=== PATIENT | male | born 1995 | race Caucasian/White ===

== ENCOUNTER 2017-12-27 20:26 | Inpatient (IN) | payer BC, OTHER ==
[~2017-12-27] VITALS: Ht 190.5 cm; Wt 98.1 kg
[2017-12-27] MEDS ORDERED: SODIUM CHLORIDE 0.9% 1000ML 1,000 ML IV ONE (20:53)
[2017-12-27] MEDS ORDERED: LIDOCAINE/EPINEPHRINE 1% 20 ML VIAL INFIL ONE (21:00)
[2017-12-27 21:24] LABS: BASO % 0.3 %; BASO ABS # 0.04 K/uL (0-0.2); EOS % 1.1 %; EOS ABS # 0.16 K/uL (0-0.5); HEMATOCRIT 45.6 % (42-52); IG# 0.07 K/uL (0.00-0.02); LYMPH % 25.7 %; LYMPH ABS # 3.75 K/uL (1.2-3.4); MEAN CELL VOLUME 84.6 fL (80-100); MEAN CORPUSCULAR HEMOGLOBIN 31.5 pg (25-34); MEAN CORPUSCULAR HGB CONC 37.3 g/dl (32-36); MEAN PLATELET VOLUME 9.8 fL (7.4-10.4); MONO ABS # 1.31 K/uL (0.11-0.59); NEUT % 63.4 %; NEUT ABS # 9.28 K/uL (1.4-6.5); PLATELET COUNT 315 K/uL (130-400); RED CELL DISTRIBUTION WIDTH CV 13.2 % (11.5-14.5); RED CELL DISTRIBUTION WIDTH SD 40.6 fL (36.4-46.3); WHITE BLOOD COUNT 14.61 K/uL (4.8-10.8)
[2017-12-27 21:33] LABS: PTT PATIENT 29.4 SECONDS (21.0-31.0)
--- NOTE | 2017-12-27 21:47 | DIAGNOSTIC IMAGING REPORT ---
HEAD WITHOUT CONTRAST (CT) CLINICAL HISTORY: 22 years-old Male with altered MS. Acutely altered mental status. TECHNIQUE: Multiple axial CT images of the head were obtained without contrast. A dose lowering technique was utilized adhering to the principles of ALARA. CT DOSE: 537.48 mGy.cm COMPARISON: None. FINDINGS: No acute intracranial hemorrhage, midline shift, intracranial mass, hydrocephalus, territorial ischemia or abnormal extra-axial collection. The calvarium is intact. The paranasal sinuses, mastoid air cells, and middle ear cavities are clear. IMPRESSION: No acute intracranial abnormality. The above report was generated using voice recognition software. It may contain grammatical, syntax or spelling errors. Electronically signed by: Eduardo Anderson M.D. 12/27/2017 9:45 PM Dictated Date/Time: 12/27/2017 9:44 PM
[2017-12-27] MEDS ORDERED: BUPR75TA20 PO (22:02)
[2017-12-27] MEDS ORDERED: DOXY100T PO (22:02)
[2017-12-27] MEDS ORDERED: PRED20TA PO (22:02)
[2017-12-27] MEDS ORDERED: SODIUM CHLORIDE 0.9% 1000ML 1,000 ML IV STA (22:10)
--- NOTE | 2017-12-27 22:17 | DIAGNOSTIC IMAGING REPORT ---
CHEST ONE VIEW PORTABLE HISTORY: 22 years-old Male Sepsis acute sepsis COMPARISON: None available TECHNIQUE: Portable AP view of the chest FINDINGS: Cardiomediastinal and hilar silhouettes are within normal limits. No pneumothorax, pleural effusion, focal airspace consolidation or overt pulmonary edema. The bones of the chest appear grossly intact. IMPRESSION: No acute process. The above report was generated using voice recognition software. It may contain grammatical, syntax or spelling errors. Electronically signed by: Eduardo Anderson M.D. 12/27/2017 10:15 PM Dictated Date/Time: 12/27/2017 10:15 PM
[2017-12-27] MEDS ORDERED: AMPICILLIN/SULBACTAM SOD INJ 3,000 MG in SODIUM CHLORIDE 0.9% 100ML 100 ML IV ONE (22:30)
[2017-12-27 22:32] LABS: ALBUMIN 3.9 gm/dl (3.4-5.0); ALKALINE PHOSPHATASE 111 U/L (45-117); ALT/SGPT 16 U/L (12-78); AST/SGOT 10 U/L (15-37); BLOOD UREA NITROGEN 17 mg/dl (7-18); CALCIUM 9.1 mg/dl (8.5-10.1); CARBON DIOXIDE 10 mmol/L (21-32); CKMB < 0.5 ng/ml (0.5-3.6); CREATININE 1.42 mg/dl (0.60-1.40); GLUCOSE 514 mg/dl (70-99); LIPASE 1169 U/L (73-393); POTASSIUM 3.8 mmol/L (3.5-5.1); SODIUM 127 mmol/L (136-145); TOTAL PROTEIN 8.3 gm/dl (6.4-8.2)
[2017-12-27] MEDS ORDERED: SODIUM CHLORIDE 0.9% 500ML 500 ML IV STA (22:33)
[2017-12-27] MEDS ORDERED: INSULIN IV INFUSION PROTOCOL STA ×2 (22:34→22:41)
[2017-12-27] MEDS ORDERED: PIPERACILLIN/TAZOBACTAM 4.5 GM/100ML D5W IV STA (22:40)
[2017-12-27] MEDS ORDERED: SEVERE STRESS LEVEL ONE (22:45)
[2017-12-27] MEDS ORDERED: DKA GOAL RANGE 150-250 mg/dl 1 EA ONE (22:45)
[2017-12-27] MEDS ORDERED: INSULIN PROTOCOL GOAL RANGE ONE (22:45)
[2017-12-27] MEDS ORDERED: GLUCOSE 40% GEL 15 GM TUBE PO PRN (23:00)
[2017-12-27] MEDS ORDERED: CARBOHYDRATES FOR HYPOGLYCEMIA PO PRN (23:00)
[2017-12-27] MEDS ORDERED: GLUCAGON FOR INJ 1 MG VIAL IM PRN (23:00)
[2017-12-27] MEDS ORDERED: GLUCOSE 10 TABS/TUBE PO PRN (23:00)
[2017-12-27] MEDS ORDERED: DEXTROSE 50% 50 ML SYR IV PRN (23:00)
[2017-12-27] MEDS ORDERED: NovoLIN R BOLUS FROM BAG IV ONE (23:00)
[2017-12-27] MEDS: INSULIN REGULAR 250 UNITS in SODIUM CHLORIDE 0.9% 250ML 250 ML IV SCH (23:05)
--- NOTE | 2017-12-27 23:16 | EMERGENCY ROOM VISIT NOTE ---
ED Visit Note I was asked by Dr. Dykes to perform an I&D of the patient's right anterior neck abscess. I examined the patient. Verbal consent was obtained to perform the procedure. After saline and Betadine cleansing and 3 mL of 1% buffered lidocaine anesthesia with epinephrine, the abscess was incised with a number 11 scalpel blade. A large amount of purulent material was released with more expressed by pressure. A swab was obtained for culture. Due to its location I did not probe the area further as the area was easily expressed digitally. I did not pack this again secondary to its location. The area was cleaned with sterile saline and dressed with bacitracin and a bandage. The patient tolerated the procedure well.
[2017-12-27] MEDS: NSS + 20MEQ KCL 1000ML 1,000 ML IV SCH (23:29)
--- NOTE | 2017-12-27 23:31 | EMERGENCY ROOM VISIT NOTE ---
History Report prepared by Steffi: Rosario Solis Under the Supervision of: Dr. Trever Dykes D.O. First contact with patient: 20:47 Chief Complaint: CONFUSION Stated Complaint: DIZZY - TROUBLE BREATHING - CONFUSED History of Present Illness The patient is a 22 year old male who presents to the Emergency Room with complaints of worsening confusion starting 2 days ago. The patient states that he noticed it is worse when he is standing up. He notes that when he lies down it gets better. The patient complains of dizziness when standing, shortness of breath while standing, excessive thirst, and heart burn that whitney his throat. The patient notes that he has had ingrown hairs that have turned into cysts for 3 weeks. He states that most have gone away, but one has not. He states that he went to [facility] on Tuesday for it and they prescribed him Doxycycline and Prednisone. He notes that he has been putting Clindamycin on it with no relief. The patient's mother notes that the patient is on Wellbutrin and has since lost a lot of weight. She complains of the patient speaking slower than normal. The patient denies fever, nausea, vomiting, headaches, redness in his legs, leg swelling, urinary symptoms, ever having any surgeries, ever having this before, and recent falls. The patient notes that he uses tobacco, alcohol, and marijuana. He notes he only uses marijuana on the weekends and has not drank or smoked marijuana in the last 48 hours. Source of History: patient, parent Onset: 2 days ago Position: other (global) Quality: other (confusion) Timing: worsening Modifying Factors (Worsening): other (standing up) Modifying Factors (Relieving): other (lying down) Associated Symptoms: + SOB, No fevers, No headache, No nausea, No vomiting, No urinary symptoms Note: The patient complains of dizziness, excessive thirst, heart burn burning his throat and cyst on his neck. The patient's mother complains of the patient having significant weight loss and speaking slower. The patient denies redness in his legs and leg swelling. Review of Systems See HPI for pertinent positives & negatives. A total of 10 systems reviewed and were otherwise negative. Past Medical & Surgical Medical Problems: (1) Heart burn (2) Sepsis Family History Patient reports no known family medical history. Social History Smoking Status: Current Every Day Smoker Alcohol Use: occasionally Drug Use: marijuana Marital Status: single Housing Status: lives with family Occupation Status: employed Current/Historical Medications Scheduled Bupropion (Wellbutrin), 1 TAB PO DAILY Doxycycline Hyclate (Doxycycline Hyclate), 100 MG PO BID Prednisone (Prednisone), 40 MG PO DAILY Allergies Coded Allergies: Kerosene (Verified Allergy, Unknown, Vomiting, 12/27/17) Physical Exam Vital Signs Date Time Temp Pulse Resp B/P (MAP) Pulse Ox O2 Delivery O2 Flow Rate FiO2 12/27/17 23:30 106 12/27/17 23:00 90 18 124/73 100 Room Air 12/27/17 22:04 102 18 104/76 100 Room Air 12/27/17 22:01 107 18 131/83 100 Room Air 109 108/85 121 104/76 12/27/17 21:17 99 Room Air 12/27/17 20:39 36.3 121 18 122/78 99 Room Air Physical Exam GENERAL: Patient is awake, alert, and mildly anxious appearing. EYES: The conjunctivae are clear. The pupils are round and reactive. EARS, NOSE, MOUTH AND THROAT: The nose is without any evidence of any deformity. Mucous membranes are dry. tongue is midline. Posterior oropharynx is mildly erythematous. No significant swelling. A fluctuant superficial abscess under the right mandibular area. No posterior tenderness appreciated. NECK: The neck is nontender and supple. RESPIRATORY: Normal respiratory effort is noted there is no evidence of wheezing rhonchi or rales CARDIOVASCULAR: Tachycardic rate, but regular rhythm. No definite murmur appreciated to auscultation. GASTROINTESTINAL: The abdomen is soft. Bowel sounds are present in all quadrants. Abdomen is nontender MUSCULOSKELETAL/EXTREMITIES: There is no evidence of gross deformity full range of motion is noted in the hips and shoulders SKIN: There is no obvious evidence of any rash. There are no petechiae, pallor or cyanosis noted. NEUROLOGIC: Patient is awake alert and oriented x3 strength is symmetric patellar reflexes are 2+ bilaterally Medical Decision & Procedures ER Provider Diagnostic Interpretation: Radiology results as stated below per my review and radiologist interpretation: CHEST ONE VIEW PORTABLE HISTORY: 22 years-old Male Sepsis acute sepsis COMPARISON: None available TECHNIQUE: Portable AP view of the chest FINDINGS: Cardiomediastinal and hilar silhouettes are within normal limits. No pneumothorax, pleural effusion, focal airspace consolidation or overt pulmonary edema. The bones of the chest appear grossly intact. IMPRESSION: No acute process. The above report was generated using voice recognition software. It may contain grammatical, syntax or spelling errors. Electronically signed by: Eduardo Anderson M.D. 12/27/2017 10:15 PM Dictated Date/Time: 12/27/2017 10:15 PM HEAD WITHOUT CONTRAST (CT) CLINICAL HISTORY: 22 years-old Male with altered MS. Acutely altered mental status. TECHNIQUE: Multiple axial CT images of the head were obtained without contrast. A dose lowering technique was utilized adhering to the principles of ALARA. CT DOSE: 537.48 mGy.cm COMPARISON: None. FINDINGS: No acute intracranial hemorrhage, midline shift, intracranial mass, hydrocephalus, territorial ischemia or abnormal extra-axial collection. The calvarium is intact. The paranasal sinuses, mastoid air cells, and middle ear cavities are clear. IMPRESSION: No acute intracranial abnormality. The above report was generated using voice recognition software. It may contain grammatical, syntax or spelling errors. Electronically signed by: Eduardo Anderson M.D. 12/27/2017 9:45 PM Dictated Date/Time: 12/27/2017 9:44 PM Laboratory Results 12/27/17 21:00 Red Blood Count 5.39, Mean Corpuscular Volume 84.6, Mean Corpuscular Hemoglobin 31.5, Mean Corpuscular Hemoglobin Concent 37.3, Mean Platelet Volume 9.8, Neutrophils (%) (Auto) 63.4, Lymphocytes (%) (Auto) 25.7, Monocytes (%) (Auto) 9.0, Eosinophils (%) (Auto) 1.1, Basophils (%) (Auto) 0.3, Neutrophils # (Auto) 9.28, Lymphocytes # (Auto) 3.75, Monocytes # (Auto) 1.31, Eosinophils # (Auto) 0.16, Basophils # (Auto) 0.04 12/27/17 21:00 Test 12/27/17 21:00 12/27/17 21:14 12/27/17 22:05 12/27/17 22:57 White Blood Count 14.61 K/uL (4.8-10.8) Red Blood Count 5.39 M/uL (4.7-6.1) Hemoglobin 17.0 g/dL (14.0-18.0) Hematocrit 45.6 % (42-52) Mean Corpuscular Volume 84.6 fL (80-100) Mean Corpuscular Hemoglobin 31.5 pg (25-34) Mean Corpuscular Hemoglobin Concent 37.3 g/dl (32-36) Platelet Count 315 K/uL (130-400) Mean Platelet Volume 9.8 fL (7.4-10.4) Neutrophils (%) (Auto) 63.4 % Lymphocytes (%) (Auto) 25.7 % Monocytes (%) (Auto) 9.0 % Eosinophils (%) (Auto) 1.1 % Basophils (%) (Auto) 0.3 % Neutrophils # (Auto) 9.28 K/uL (1.4-6.5) Lymphocytes # (Auto) 3.75 K/uL (1.2-3.4) Monocytes # (Auto) 1.31 K/uL (0.11-0.59) Eosinophils # (Auto) 0.16 K/uL (0-0.5) Basophils # (Auto) 0.04 K/uL (0-0.2) RDW Standard Deviation 40.6 fL (36.4-46.3) RDW Coefficient of Variation 13.2 % (11.5-14.5) Immature Granulocyte % (Auto) 0.5 % Immature Granulocyte # (Auto) 0.07 K/uL (0.00-0.02) Erythrocyte Sedimentation Rate 23 mm/hr (0-14) Prothrombin Time 10.4 SECONDS (9.0-12.0) Prothromb Time International Ratio 1.0 (0.9-1.1) Activated Partial Thromboplast Time 29.4 SECONDS (21.0-31.0) Partial Thromboplastin Ratio 1.1 D-Dimer 310 ug/L FEU (0-500) Anion Gap 22.0 mmol/L (3-11) Est Creatinine Clear Calc Drug Dose 95.9 ml/min Estimated GFR () 79.6 Estimated GFR (Non- 68.6 BUN/Creatinine Ratio 11.6 (10-20) Osmolality 319 mOsm/kg (280-300) Calcium Level 9.1 mg/dl (8.5-10.1) Magnesium Level 2.1 mg/dl (1.8-2.4) Total Bilirubin 0.7 mg/dl (0.2-1) Aspartate Amino Transf (AST/SGOT) 10 U/L (15-37) Alanine Aminotransferase (ALT/SGPT) 16 U/L (12-78) Alkaline Phosphatase 111 U/L (45-117) Total Creatine Kinase 41 U/L (39-308) Creatine Kinase MB < 0.5 ng/ml (0.5-3.6) Creatine Kinase MB Ratio (0-3.0) Troponin I < 0.015 ng/ml (0-0.045) C-Reactive Protein 0.64 mg/dl (0-0.29) Total Protein 8.3 gm/dl (6.4-8.2) Albumin 3.9 gm/dl (3.4-5.0) Globulin 4.4 gm/dl (2.5-4.0) Albumin/Globulin Ratio 0.9 (0.9-2) Lipase 1169 U/L (73-393) Beta-Hydroxybutyric Acid 91.87 mg/dL (0.2-2.81) Thyroid Stimulating Hormone (TSH) 1.440 uIu/ml (0.300-4.500) Chemistry Specimen Hemolysis Bedside Lactic Acid Venous 0.97 mmol/L (0.90-1.70) Urine Color YELLOW Urine Appearance CLEAR (CLEAR) Urine pH 5.0 (4.5-7.5) Urine Specific [place] 1.040 (1.000-1.030) Urine Protein TRACE (NEG) Urine Glucose (UA) 3+ (NEG) Urine Ketones 4+ (NEG) Urine Occult Blood NEG (NEG) Urine Nitrite NEG (NEG) Urine Bilirubin NEG (NEG) Urine Urobilinogen NEG (NEG) Urine Leukocyte Esterase NEG (NEG) Urine WBC (Auto) 0 /hpf (0-5) Urine RBC (Auto) 0-4 /hpf (0-4) Urine Hyaline Casts (Auto) 5-10 /lpf (0-5) Urine Epithelial Cells (Auto) 5-10 /lpf (0-5) Urine Bacteria (Auto) NEG (NEG) Arterial Blood pH 7.24 (7.35-7.45) Arterial Blood Partial Pressure CO2 19 mmHg (35-46) Arterial Blood Partial Pressure O2 124 mm/Hg (80-95) Arterial Blood HCO3 8 mmol/L (19-24) Arterial Blood Oxygen Saturation 98.3 % (90-95) Arterial Blood Base Excess -17.1 mEq/L (-9-1.8) Arterial Blood Gas Delivery RA George Test POS (POS) Test 12/27/17 23:02 Venous Blood pH 7.17 (7.36-7.41) Venous Blood Partial Pressure CO2 28 mmHg (38.0-50.0) Venous Blood Partial Pressure O2 43 mmHg Venous Blood HCO3 10 mmol/L Venous Blood Oxygen Saturation 71.5 % Venous Blood Base Excess -17.1 mEq/L Laboratory results per my review. Medications Administered Medications (Trade) Dose Ordered Sig/Xena Route Start Time Stop Time Status Last Admin Dose Admin Sodium Chloride 1,000 ml @ 999 mls/hr Q1H1M ONCE IV 12/27/17 20:53 12/27/17 21:53 DC 12/27/17 21:22 999 MLS/HR Sodium Chloride 1,000 ml @ 999 mls/hr Q1H1M STAT IV 12/27/17 22:10 12/27/17 23:10 DC 12/27/17 22:10 999 MLS/HR Sodium Chloride 500 ml @ 999 mls/hr Q31M STAT IV 12/27/17 22:33 12/27/17 23:03 DC 12/27/17 22:44 999 MLS/HR Piperacillin Sod/ Tazobactam Sod (Zosyn Iv) 4.5 gm NOW STAT IV 12/27/17 22:40 12/27/17 22:43 DC 12/27/17 22:47 4.5 GM Insulin Human Regular (NovoLIN R BOLUS FROM BAG) 3.5 unit NOW ONCE IV 12/27/17 23:00 12/27/17 23:01 DC 12/27/17 23:00 3.5 UNIT Insulin Human Regular 250 units/ Sodium Chloride 252.5 ml @ 0 mls/hr Q24H IV 12/27/17 23:00 01/26/18 22:59 12/28/17 00:03 4.2 MLS/HR Potassium Chloride/Sodium Chloride 1,000 ml @ 250 mls/hr Q4H IV 12/27/17 23:15 01/26/18 23:14 12/27/17 23:29 250 MLS/HR ECG Per My Interpretation Indication: other (confusion, dizziness) Rate (beats per minute): 102 Rhythm: sinus tachycardia Findings: no ectopy, other (no acute ST segment abnormalities) Comparison ECG Date: no prior available ED Course 2047: The patient was evaluated in room B8. A complete history and physical examination were performed. 2052: Ordered NSS 1000 ml @ 999 mls/hr IV. 2099: Ordered Lidocaine/ Epinephrine 20 ml INFIL. 2209: Ordered NSS 1000 ml @ 999 mls/hr IV. 2229: Ordered Ampicillin Sodium/ Sulbactam Sodium 3000 mg/ Sodium Chloride 108 ml @ 200 mls/hr IV. 2232: Ordered NSS 500 ml @ 999 mls/hr IV. 2233: Ordered Insulin Human Regular 1 ea N/A. 2235: I reevaluated the patient and updated him on his test results. 2239: I discussed the patient's case with Dr. Kavya Graham. The patient will be evaluated for further management. Medical Decision Differential diagnosis: Etiologies such as benign positional vertigo, dehydration, hypovolemia, anemia, tumor, infection, hypoglycemia, electrolyte abnormalities, cardiac sources, intracerebral event, toxicologic, neurologic, as well as others were entertained. Nursing notes reviewed. Additional history is obtained from the patient's family member. The patient is a 22-year-old male who presented to the emergency department for an evaluation. The patient had orthostatic symptoms such as dizziness and near syncope. He was found to have orthostatic hypotension. The patient also was taking an antibiotic and a steroid for a facial abscess. He states that he has developed some of these recently and [facility] and started on antibiotics and a steroid. Patient also reported polyuria and polydipsia. I discussed patient's laboratory and radiographic studies with him. The facial abscess was incised and drained by my physician assistant research scientist Yusuf Dyer. Please see his note for procedure details. The patient was started on IV fluids and IV insulin. He was also treated with IV antibiotics. I discussed patient's condition with the on-call [facility]. They have agreed to evaluate the patient in the emergency department for further management and disposition. Head Trauma GCS Score: 15 Medication Reconcilliation Current Medication List: was personally reviewed by me Blood Pressure Screening Patient's blood pressure: Normal blood pressure Will be further monitored by the hospitalist. Consults Time Called: 2233 Consulting Physician: Dr. Kavya Graham Returned Call: 2239 I discussed the patient's case with Dr. Kavya Ovalles Hospitalist. The patient will be evaluated for further management. Impression Primary Impression: DKA (diabetic ketoacidoses) Additional Impressions: Facial abscess Pancreatitis Orthostatic hypotension Critical Care I have personally spent greater than 45 minutes of critical care time in the direct management of this patient. This includes bedside care, interpretation of diagnostic studies, and testing, discussion with consultants, patient, and family members, and other required patient management activities. This 45 minutes is in excess of all separately billable procedures. Scribe Attestation The scribe's documentation has been prepared under my direction and personally reviewed by me in its entirety. I confirm that the note above accurately reflects all work, treatment, procedures, and medical decision making performed by me. Departure Information Dispostion Being Evaluated By Hospitalist Referrals No Doctor, Assigned (PCP) Patient Instructions My [facility] Problem Qualifiers Primary Impression: DKA (diabetic ketoacidoses) Diabetes mellitus type: other specified (including KATHY) Diabetes mellitus complication detail: without coma Qualified Codes: E13.10 - Other specified diabetes mellitus with ketoacidosis without coma Additional Impressions: Pancreatitis Chronicity: acute Pancreatitis type: unspecified pancreatitis type Acute pancreatitis complication: unspecified Qualified Codes: K85.90 - Acute pancreatitis without necrosis or infection, unspecified
[2017-12-28] VITALS (10 sets, daily range): BP systolic 95–132; BP diastolic 58–84; PULSE 90–117; TEMP 36.3–37; O2SAT 98–100; BMI 25.8; BMI 26.4
[2017-12-28] MEDS: INSULIN REGULAR 250 UNITS in SODIUM CHLORIDE 0.9% 250ML 250 ML IV SCH ×13 (00:03→18:11)
[2017-12-28] MEDS ORDERED: NICOTINE 14 MG/24 HR TDSY TD ONE (00:48)
[2017-12-28] MEDS ORDERED: ACETAMINOPHEN 325 MG TAB PO PRN (01:15)
[2017-12-28] MEDS ORDERED: HYDROmorphone INJ 0.5 MG/0.5 ML SYR IV PRN (01:15)
[2017-12-28] MEDS ORDERED: LORAZEPAM 2 MG/ML 1 ML VIAL IV PRN (01:15)
[2017-12-28] MEDS ORDERED: PROCHLORPERAZINE INJ 5 MG in SYRINGE 4 ML IV PRN (01:15)
[2017-12-28] MEDS ORDERED: TRAMADOL HCL 50 MG TAB PO PRN (01:15)
[2017-12-28] MEDS ORDERED: NITROGLYCERIN 0.4 MG SL PER TAB CHARGE SL PRN (01:15)
[2017-12-28] MEDS ORDERED: D5NSS + 20MEQ KCL 1,000 ML IV PRN (01:15)
[2017-12-28 01:35] LABS: CALCIUM 8.2 mg/dl (8.5-10.1); CREATININE 1.17 mg/dl (0.60-1.40); POTASSIUM 3.9 mmol/L (3.5-5.1)
[2017-12-28] MEDS: CEFEPIME IV 2,000 MG in SYRINGE 7.5 ML IV SCH ×2 (03:15→13:37)
[2017-12-28] MEDS: NSS + 20MEQ KCL 1000ML 1,000 ML IV SCH ×3 (03:15→17:05)
[2017-12-28] MEDS: HEPARIN SOD 5000 UNIT/0.5 ML CARP SQ SCH ×3 (06:00→21:13)
[2017-12-28 06:20] LABS: HEMOGLOBIN A1C 14.1 % (4.5-5.6)
[2017-12-28 06:35] LABS: BASO % 0.3 %; BASO ABS # 0.03 K/uL (0-0.2); EOS % 2.3 %; EOS ABS # 0.21 K/uL (0-0.5); HEMATOCRIT 39.2 % (42-52); HEMOGLOBIN 14.5 g/dL (14.0-18.0); IG# 0.04 K/uL (0.00-0.02); LYMPH % 24.7 %; LYMPH ABS # 2.28 K/uL (1.2-3.4); MEAN CELL VOLUME 84.1 fL (80-100); MEAN CORPUSCULAR HEMOGLOBIN 31.1 pg (25-34); MEAN PLATELET VOLUME 9.1 fL (7.4-10.4); MONO % 9.6 %; MONO ABS # 0.89 K/uL (0.11-0.59); NEUT % 62.7 %; NEUT ABS # 5.78 K/uL (1.4-6.5); PLATELET COUNT 219 K/uL (130-400); RED CELL DISTRIBUTION WIDTH CV 13.2 % (11.5-14.5); RED CELL DISTRIBUTION WIDTH SD 39.9 fL (36.4-46.3); WHITE BLOOD COUNT 9.23 K/uL (4.8-10.8)
[2017-12-28 07:14] LABS: BLOOD UREA NITROGEN 10 mg/dl (7-18); CALCIUM 7.9 mg/dl (8.5-10.1); CARBON DIOXIDE 14 mmol/L (21-32); CREATININE 1.02 mg/dl (0.60-1.40); GLUCOSE 199 mg/dl (70-99); SODIUM 136 mmol/L (136-145)
[2017-12-28] MEDS ORDERED: PHARMACY GLYCEMIC MGMT CONSULT PRN (07:34)
[2017-12-28] MEDS ORDERED: NURSING VERBAL MED ORDER ONE ×4 (08:15→13:45)
[2017-12-28] MEDS ORDERED: INSULIN GLARGINE SOLOSTAR 100 UNITS/ML 3 ML PEN SC ONE ×2 (08:15→08:45)
[2017-12-28] MEDS: POTASSIUM CHLR 10 MEQ / WTR 100 ML IV SCH ×7 (08:25→23:42)
[2017-12-28] MEDS: DOXYCYCLINE HYCLATE 100 MG CAP PO SCH ×2 (08:28→21:13)
[2017-12-28] MEDS: INSULIN ASPART 100 UNITS/ML 3 ML PEN SC SCH ×6 (08:30→21:30)
[2017-12-28] MEDS: SODIUM CHLORIDE 0.9% 1000ML 1,000 ML IV SCH ×2 (08:49→13:37)
[2017-12-28] MEDS ORDERED: INSULIN ASPART 100 UNITS/ML 3 ML PEN SC SCH (09:00)
[2017-12-28] MEDS ORDERED: CEFEPIME CONSULT ACTIVE PRN (09:00)
--- NOTE | 2017-12-28 09:20 | HISTORY & PHYSICAL EXAMINATION ---
DATE OF ADMISSION: 12/28/2017 PRIMARY CARE DOCTOR: Dr. Norris Cole CHIEF COMPLAINT: Shortness of breath, dizziness. HISTORY OF PRESENT ILLNESS: History is obtained from the patient, mother, and records. Medical history is significant for mood, anxiety disorder, ongoing tobacco abuse. A few weeks ago, the patient noted swelling on the right chin, possibly from an ingrown hair. No toothache. A few days ago, the patient was seen at an urgent care center for possible infection. Given doxycycline and prednisone. Swelling unimproved. Patient noted to be dizzy, slightly confused by mother, shortness of breath, peeing a lot, poor appetite, some nausea, no abdominal pain, no vomiting. Patient was brought to the Emergency Room. Right chin abscess drain at the ER. IV insulin, IVF given for DKA. MEDICAL HISTORY: As above. No abdominal pain. SURGERIES: None. HOME MEDICATIONS: Include Wellbutrin, doxycycline, prednisone. ALLERGIES: NKA FAMILY HISTORY: There is a family history of diabetes. PERSONAL AND SOCIAL HISTORY: Half pack a day. No chronic intake of alcoholic beverages. Currently not working. Lives with mother. REVIEW OF SYSTEMS: As per HPI, all 10 systems reviewed. All other ROS negative. PHYSICAL EXAMINATION: VITAL SIGNS: Blood pressure was noted to be 130/78, pulse rate 110, RR 18, temperature 36.3, sats 99 on room air. GENERAL: Anxious, in no respiratory distress. SKIN: Normal color, warm. HEENT: [place] palpebral conjunctivae. No ptosis. Dry mucosa. No trismus. Dressing on right submental area. CHEST: Clear to auscultation. HEART: Tachycardic. No murmur. ABDOMEN: Soft, nontender. EXTREMITIES: No edema, no tenderness. No gross deformity. NEUROLOGIC: Coherent. No gross focality. LABORATORIES: Hemoglobin was noted to be 13.7, hematocrit was 40.6, WBC 14 platelets 315. Sodium noted to be 132, potassium 3.8, chloride 95, CO2 10, BUN 70, creatinine 1.42, glucose was noted to be 514. Ketones abnormal. Venous blood gas, pH 7.24, pCO2 19, pO2 124, O2 sats 98 on room air. LFTs were normal, lipase 1000 DATA: CT head, no acute pathology. Chest x-ray, no acute process. ASSESSMENT: 1. Severe sepsis SIRS plus ARF secondary to right submental abscess (non-odontogenic infection) failed outpatient treatment 2. diabetic ketoacidosis precipitated by sepsis, steroid Rx New diagnosis of DM 3. Ongoing tobacco abuse. 4. Mood/ anxiety disorder, stable as per patient PLAN: PCU CS, Cefepime, Doxycycline IVF, follow renal function dc outpatient steroid course IV insulin, IVF Check hemoglobin A1C Diabetic education Endocrinology consult outpatient at some point May benefit from Pharmacy glycemic control consult. Nicotine patch. DVT prophylaxis, Heparin subQ. FULL CODE. MTDD
[2017-12-28] MEDS ORDERED: PANTOprazole INJ 40 MG in SYRINGE 0 ML IV ONE (11:45)
[2017-12-28 13:01] LABS: CALCIUM 7.7 mg/dl (8.5-10.1); CREATININE 0.9 mg/dl (0.60-1.40); POTASSIUM 3.5 mmol/L (3.5-5.1)
--- NOTE | 2017-12-28 15:26 | Pharmacy Progress Note ---
Glycemic Control Intl Consult Date of Service December 28, 2017. Scope Glycemic Pharmacist consulted by Dr Gomez on 12/28/17 for glycemic control and to write orders per [facility] inpatient glycemic control protocol. Objective Weight (Kilograms): 95.900 Accuchecks BSG (last 24hrs): Test 12/27/17 21:00 12/27/17 22:40 12/27/17 23:56 12/28/17 01:00 Random Glucose 514 mg/dl (70-99) Bedside Glucose 438 mg/dl (70-99) 390 mg/dl (70-99) 348 mg/dl (70-99) Test 12/28/17 01:01 12/28/17 02:11 12/28/17 02:59 12/28/17 04:13 Random Glucose 303 mg/dl (70-99) Bedside Glucose 296 mg/dl (70-99) 251 mg/dl (70-99) 195 mg/dl (70-99) Test 12/28/17 05:07 12/28/17 05:58 12/28/17 06:28 12/28/17 06:57 Bedside Glucose 209 mg/dl (70-99) 248 mg/dl (70-99) 195 mg/dl (70-99) Random Glucose 199 mg/dl (70-99) Test 12/28/17 08:07 12/28/17 09:02 12/28/17 10:01 12/28/17 11:00 Bedside Glucose 188 mg/dl (70-99) 194 mg/dl (70-99) 207 mg/dl (70-99) 216 mg/dl (70-99) Test 12/28/17 11:58 12/28/17 12:30 12/28/17 13:03 12/28/17 14:01 Bedside Glucose 212 mg/dl (70-99) 224 mg/dl (70-99) 192 mg/dl (70-99) Random Glucose 218 mg/dl (70-99) Test 12/28/17 15:01 Bedside Glucose 191 mg/dl (70-99) Laboratory Data (last 24hrs) Test 12/27/17 21:00 12/27/17 23:02 12/28/17 01:01 12/28/17 06:28 Anion Gap 22.0 mmol/L 17.0 mmol/L 13.0 mmol/L BUN/Creatinine Ratio 11.6 11.5 9.9 Blood Urea Nitrogen 17 mg/dl 13 mg/dl 10 mg/dl Creatinine 1.42 mg/dl 1.17 mg/dl 1.02 mg/dl Potassium Level 3.8 mmol/L 3.9 mmol/L 3.0 mmol/L Sodium Level 127 mmol/L 135 mmol/L 136 mmol/L White Blood Count 14.61 K/uL 9.23 K/uL Red Blood Count 5.39 M/uL 4.66 M/uL Hemoglobin 17.0 g/dL 14.5 g/dL Hematocrit 45.6 % 39.2 % Mean Corpuscular Volume 84.6 fL 84.1 fL Mean Corpuscular Hemoglobin 31.5 pg 31.1 pg Mean Corpuscular Hemoglobin Concent 37.3 g/dl 37.0 g/dl Platelet Count 315 K/uL 219 K/uL Mean Platelet Volume 9.8 fL 9.1 fL Neutrophils (%) (Auto) 63.4 % 62.7 % Lymphocytes (%) (Auto) 25.7 % 24.7 % Monocytes (%) (Auto) 9.0 % 9.6 % Eosinophils (%) (Auto) 1.1 % 2.3 % Basophils (%) (Auto) 0.3 % 0.3 % Neutrophils # (Auto) 9.28 K/uL 5.78 K/uL Lymphocytes # (Auto) 3.75 K/uL 2.28 K/uL Monocytes # (Auto) 1.31 K/uL 0.89 K/uL Eosinophils # (Auto) 0.16 K/uL 0.21 K/uL Basophils # (Auto) 0.04 K/uL 0.03 K/uL Hemoglobin A1c 14.1 % Test 12/28/17 12:30 Anion Gap 17.0 mmol/L BUN/Creatinine Ratio 7.5 Blood Urea Nitrogen 7 mg/dl Creatinine 0.90 mg/dl Potassium Level 3.5 mmol/L Sodium Level 135 mmol/L HbA1c Test 12/27/17 23:02 Hemoglobin A1c 14.1 % (4.5-5.6) H Recent Pertinent Medications Outpatient Anti-diabetic Regimen: * n/a * A1c = 14.1% (12/27/17) Risk Factors for Insulin Resistance: * Steroids: n/a * Infection: doxy PO, cefepime IV * IVF: NS + 20mEq KCl @ 250mL/hr * Diet: NPO --> Type 1 diabetic diet Assessment & Plan ASSESSMENT: * Mr Kamara is a 22yo previously undiagnosed diabetic, admitted with sepsis and found to be in DKA. * admission labs: BHBA 91.9, urine ketones 4+, BSG > 500, anion gap 22, CO2 10 , pH 7.2 * Patient was prescribed prednisone as an outpt recently, which likely contributed to DKA. * Patient's potassium level was 3.0 this morning, so insulin gtt was placed on hold for several hours until K+ replaced. Lantus dose was given in the mean time. * Repeat labs confirmed that DKA has not yet resolved and that K+ acceptable to resume IV insulin infusion. PLAN FOR INPATIENT GLYCEMIC CONTROL: * Resume IV insulin infusion * Goal Range 120 - 180 mg/dl * Resume at 2.4 units/hr and then titrate per Insulin Infusion Adjustment Calculator * Holding outpatient oral diabetes medications * Basal insulin with LANTUS 30 units SQ x1 dose this morning * Will work on transition to SQ regimen tomorrow morning, if labs are appropriate (drip should continue overnight) * Should have a better idea of patient's insulin requirements after spending some time on insulin infusion * Correctional Insulin with NOVOLOG / REGULAR per scale PCHS while on insulin gtt * CHO coverage per Insulin Infusion Adjustment Calculator DISCHARGE PLANNING: * Patient's current A1c 14.1%. Patient will need to be discharged on an insulin regimen. * Recommendations once more is known about patient's insulin requirements. * CDE consulted and working with patient. * Please note that the plan above was derived based on current level of insulin resistance and hospital stress. These recommendations are appropriate for inpatient admission only. Plan of care upon discharge will need to be reassessed to avoid potential outpatient hypo/hyperglycemia. Thank you.
[2017-12-28] MEDS: BuPROPion XL 150 MG TABCR PO SCH (16:29)
[2017-12-28 17:08] LABS: CALCIUM 7.8 mg/dl (8.5-10.1); CREATININE 0.96 mg/dl (0.60-1.40); POTASSIUM 3.1 mmol/L (3.5-5.1)
[2017-12-28] MEDS ORDERED: POTASSIUM CHLORIDE 20 MEQ TABCR PO STA (17:56)
[2017-12-28] MEDS ORDERED: POTASSIUM CHLR 10 MEQ / WTR 100 ML IV STA (17:58)
--- NOTE | 2017-12-28 19:07 | Progress Note ---
Internal Med Progress Note Date of Service: December 28, 2017. Provider Documentation: SUBJECTIVE: Patient awake and alert. Still on Insulin drip and on IV potassium. Denies acute pain or shortness of breath. OBJECTIVE: Exam: General- no distress Eyes- EOMI Neck-no JVD Lungs- CTABL, no wheezing Heart- regular rate Abdomen- soft, nontender, + bowel sounds Extremities- no edema Neuro- awake and alert ASSESSMENT & PLAN: Severe sepsis -SIRS plus ARF secondary to right submental abscess (non-odontogenic infection) failed outpatient treatment -Cefepime, Doxycycline, IV insulin, IVF -follow skin wound culture and blood cultures diabetic ketoacidosis precipitated by sepsis, steroid Rx -dc outpatient steroid course, New diagnosis of diabetes -Inpatient Pharmacy glycemic control consult IV insulin, IVF, patient's anion gap has not closed yet and IV insulin treatment has been interrupted because of hypokalemia and need to improve serum potassium levels, currently the plan is have IV potassium riders with oral potassium and keep insulin drip running to close the gap, labs are being drawn frequently q4 hours and if next serum potassium level is less than 3.3 then there are future ordered to give 30 meq IV potassium likely as 10 meq q 1 hr for 3 doses. -Diabetic educations of DM -outpatient endocrine follow up Tobacco use -Nicotine patch. Mood/ anxiety disorder, stable as per patient -bupropion DVT prophylaxis, Heparin subQ. FULL CODE. Vital Signs: Date Time Temp Pulse Resp B/P (MAP) Pulse Ox O2 Delivery O2 Flow Rate FiO2 12/28/17 16:10 Room Air 12/28/17 14:53 36.8 108 18 131/84 (100) 99 Room Air 12/28/17 14:39 36.7 90 20 118/76 (90) 99 Room Air 12/28/17 12:00 100 Room Air 12/28/17 11:28 36.3 91 16 95/58 (70) 100 Room Air 12/28/17 08:00 98 Room Air 12/28/17 07:10 36.6 117 20 107/73 (84) 98 Room Air 12/28/17 04:32 36.6 92 18 111/73 (86) 98 Room Air 12/28/17 04:00 Room Air 12/28/17 00:45 37.0 94 18 119/77 100 Room Air 12/28/17 00:00 36.8 100 18 150/80 100 Room Air 12/27/17 23:30 106 12/27/17 23:00 90 18 124/73 100 Room Air 12/27/17 22:04 102 18 104/76 100 Room Air 12/27/17 22:01 107 18 131/83 100 Room Air 109 108/85 121 104/76 12/27/17 21:17 99 Room Air 12/27/17 20:39 36.3 121 18 122/78 99 Room Air Lab Results: Results Past 24 Hours Test 12/27/17 21:00 12/27/17 21:14 12/27/17 22:05 12/27/17 22:40 Range/Units White Blood Count 14.61 4.8-10.8 K/uL Red Blood Count 5.39 4.7-6.1 M/uL Hemoglobin 17.0 14.0-18.0 g/dL Hematocrit 45.6 42-52 % Mean Corpuscular Volume 84.6 80-100 fL Mean Corpuscular Hemoglobin 31.5 25-34 pg Mean Corpuscular Hemoglobin Concent 37.3 32-36 g/dl Platelet Count 315 130-400 K/uL Mean Platelet Volume 9.8 7.4-10.4 fL Neutrophils (%) (Auto) 63.4 % Lymphocytes (%) (Auto) 25.7 % Monocytes (%) (Auto) 9.0 % Eosinophils (%) (Auto) 1.1 % Basophils (%) (Auto) 0.3 % Neutrophils # (Auto) 9.28 1.4-6.5 K/uL Lymphocytes # (Auto) 3.75 1.2-3.4 K/uL Monocytes # (Auto) 1.31 0.11-0.59 K/uL Eosinophils # (Auto) 0.16 0-0.5 K/uL Basophils # (Auto) 0.04 0-0.2 K/uL RDW Standard Deviation 40.6 36.4-46.3 fL RDW Coefficient of Variation 13.2 11.5-14.5 % Immature Granulocyte % (Auto) 0.5 % Immature Granulocyte # (Auto) 0.07 0.00-0.02 K/uL Erythrocyte Sedimentation Rate 23 0-14 mm/hr Prothrombin Time 10.4 9.0-12.0 SECONDS Prothromb Time International Ratio 1.0 0.9-1.1 Activated Partial Thromboplast Time 29.4 21.0-31.0 SECONDS Partial Thromboplastin Ratio 1.1 D-Dimer 310 0-500 ug/L FEU Sodium Level 127 136-145 mmol/L Potassium Level 3.8 3.5-5.1 mmol/L Chloride Level 95 98-107 mmol/L Carbon Dioxide Level 10 21-32 mmol/L Anion Gap 22.0 3-11 mmol/L Blood Urea Nitrogen 17 7-18 mg/dl Creatinine 1.42 0.60-1.40 mg/dl Est Creatinine Clear Calc Drug Dose 95.9 ml/min Estimated GFR () 79.6 Estimated GFR (Non- 68.6 BUN/Creatinine Ratio 11.6 10-20 Random Glucose 514 70-99 mg/dl Osmolality 319 280-300 mOsm/kg Calcium Level 9.1 8.5-10.1 mg/dl Magnesium Level 2.1 1.8-2.4 mg/dl Total Bilirubin 0.7 0.2-1 mg/dl Aspartate Amino Transf (AST/SGOT) 10 15-37 U/L Alanine Aminotransferase (ALT/SGPT) 16 12-78 U/L Alkaline Phosphatase 111 45-117 U/L Total Creatine Kinase 41 39-308 U/L Creatine Kinase MB < 0.5 0.5-3.6 ng/ml Creatine Kinase MB Ratio 0-3.0 Troponin I < 0.015 0-0.045 ng/ml C-Reactive Protein 0.64 0-0.29 mg/dl Total Protein 8.3 6.4-8.2 gm/dl Albumin 3.9 3.4-5.0 gm/dl Globulin 4.4 2.5-4.0 gm/dl Albumin/Globulin Ratio 0.9 0.9-2 Lipase 1169 73-393 U/L Beta-Hydroxybutyric Acid 91.87 0.2-2.81 mg/dL Thyroid Stimulating Hormone (TSH) 1.440 0.300-4.500 uIu/ml Chemistry Specimen Hemolysis Bedside Lactic Acid Venous 0.97 0.90-1.70 mmol/L Urine Color YELLOW Urine Appearance CLEAR CLEAR Urine pH 5.0 4.5-7.5 Urine Specific [place] 1.040 1.000-1.030 Urine Protein TRACE NEG Urine Glucose (UA) 3+ NEG Urine Ketones 4+ NEG Urine Occult Blood NEG NEG Urine Nitrite NEG NEG Urine Bilirubin NEG NEG Urine Urobilinogen NEG NEG Urine Leukocyte Esterase NEG NEG Urine WBC (Auto) 0 0-5 /hpf Urine RBC (Auto) 0-4 0-4 /hpf Urine Hyaline Casts (Auto) 5-10 0-5 /lpf Urine Epithelial Cells (Auto) 5-10 0-5 /lpf Urine Bacteria (Auto) NEG NEG Bedside Glucose 438 70-99 mg/dl Test 12/27/17 22:57 12/27/17 23:02 12/27/17 23:56 12/28/17 01:00 Range/Units Arterial Blood pH 7.24 7.35-7.45 Arterial Blood Partial Pressure CO2 19 35-46 mmHg Arterial Blood Partial Pressure O2 124 80-95 mm/Hg Arterial Blood HCO3 8 19-24 mmol/L Arterial Blood Oxygen Saturation 98.3 90-95 % Arterial Blood Base Excess -17.1 -9-1.8 mEq/L Arterial Blood Gas Delivery RA George Test POS POS Venous Blood pH 7.17 7.36-7.41 Venous Blood Partial Pressure CO2 28 38.0-50.0 mmHg Venous Blood Partial Pressure O2 43 mmHg Venous Blood HCO3 10 mmol/L Venous Blood Oxygen Saturation 71.5 % Venous Blood Base Excess -17.1 mEq/L Estimated Average Glucose 358 mg/dl Hemoglobin A1c 14.1 4.5-5.6 % Bedside Glucose 390 348 70-99 mg/dl Test 12/28/17 01:01 12/28/17 02:11 12/28/17 02:59 12/28/17 04:13 Range/Units Sodium Level 135 136-145 mmol/L Potassium Level 3.9 3.5-5.1 mmol/L Chloride Level 104 98-107 mmol/L Carbon Dioxide Level 14 21-32 mmol/L Anion Gap 17.0 3-11 mmol/L Blood Urea Nitrogen 13 7-18 mg/dl Creatinine 1.17 0.60-1.40 mg/dl Est Creatinine Clear Calc Drug Dose 116.4 ml/min Estimated GFR () 100.5 Estimated GFR (Non- 86.7 BUN/Creatinine Ratio 11.5 10-20 Random Glucose 303 70-99 mg/dl Calcium Level 8.2 8.5-10.1 mg/dl Lipase 681 73-393 U/L Beta-Hydroxybutyric Acid 77.41 0.2-2.81 mg/dL Bedside Glucose 296 251 195 70-99 mg/dl Test 12/28/17 05:07 12/28/17 05:58 12/28/17 06:28 12/28/17 06:57 Range/Units Bedside Glucose 209 248 195 70-99 mg/dl White Blood Count 9.23 4.8-10.8 K/uL Red Blood Count 4.66 4.7-6.1 M/uL Hemoglobin 14.5 14.0-18.0 g/dL Hematocrit 39.2 42-52 % Mean Corpuscular Volume 84.1 80-100 fL Mean Corpuscular Hemoglobin 31.1 25-34 pg Mean Corpuscular Hemoglobin Concent 37.0 32-36 g/dl Platelet Count 219 130-400 K/uL Mean Platelet Volume 9.1 7.4-10.4 fL Neutrophils (%) (Auto) 62.7 % Lymphocytes (%) (Auto) 24.7 % Monocytes (%) (Auto) 9.6 % Eosinophils (%) (Auto) 2.3 % Basophils (%) (Auto) 0.3 % Neutrophils # (Auto) 5.78 1.4-6.5 K/uL Lymphocytes # (Auto) 2.28 1.2-3.4 K/uL Monocytes # (Auto) 0.89 0.11-0.59 K/uL Eosinophils # (Auto) 0.21 0-0.5 K/uL Basophils # (Auto) 0.03 0-0.2 K/uL RDW Standard Deviation 39.9 36.4-46.3 fL RDW Coefficient of Variation 13.2 11.5-14.5 % Immature Granulocyte % (Auto) 0.4 % Immature Granulocyte # (Auto) 0.04 0.00-0.02 K/uL Sodium Level 136 136-145 mmol/L Potassium Level 3.0 3.5-5.1 mmol/L Chloride Level 109 98-107 mmol/L Carbon Dioxide Level 14 21-32 mmol/L Anion Gap 13.0 3-11 mmol/L Blood Urea Nitrogen 10 7-18 mg/dl Creatinine 1.02 0.60-1.40 mg/dl Est Creatinine Clear Calc Drug Dose 133.5 ml/min Estimated GFR () 118.7 Estimated GFR (Non- 102.4 BUN/Creatinine Ratio 9.9 10-20 Random Glucose 199 70-99 mg/dl Calcium Level 7.9 8.5-10.1 mg/dl Troponin I < 0.015 0-0.045 ng/ml Lipase 410 73-393 U/L Test 12/28/17 08:07 12/28/17 09:02 12/28/17 10:01 12/28/17 11:00 Range/Units Bedside Glucose 188 194 207 216 70-99 mg/dl Test 12/28/17 11:58 12/28/17 12:30 12/28/17 13:03 12/28/17 14:01 Range/Units Bedside Glucose 212 224 192 70-99 mg/dl Sodium Level 135 136-145 mmol/L Potassium Level 3.5 3.5-5.1 mmol/L Chloride Level 107 98-107 mmol/L Carbon Dioxide Level 11 21-32 mmol/L Anion Gap 17.0 3-11 mmol/L Blood Urea Nitrogen 7 7-18 mg/dl Creatinine 0.90 0.60-1.40 mg/dl Est Creatinine Clear Calc Drug Dose 151.3 ml/min Estimated GFR () 138.1 Estimated GFR (Non- 119.1 BUN/Creatinine Ratio 7.5 10-20 Random Glucose 218 70-99 mg/dl Calcium Level 7.7 8.5-10.1 mg/dl Test 12/28/17 15:01 12/28/17 16:05 12/28/17 16:06 12/28/17 16:57 Range/Units Bedside Glucose 191 288 230 70-99 mg/dl Sodium Level 133 136-145 mmol/L Potassium Level 3.1 3.5-5.1 mmol/L Chloride Level 107 98-107 mmol/L Carbon Dioxide Level 10 21-32 mmol/L Anion Gap 16.0 3-11 mmol/L Blood Urea Nitrogen 6 7-18 mg/dl Creatinine 0.96 0.60-1.40 mg/dl Est Creatinine Clear Calc Drug Dose 141.8 ml/min Estimated GFR () 127.7 Estimated GFR (Non- 110.2 BUN/Creatinine Ratio 6.6 10-20 Random Glucose 273 70-99 mg/dl Calcium Level 7.8 8.5-10.1 mg/dl Test 12/28/17 18:04 Range/Units Bedside Glucose 270 70-99 mg/dl Microbiology Results 12/27/17 Blood Culture, Received Pending 12/27/17 Blood Culture, Received Pending 12/27/17 Gram Stain - Final, Resulted 12/27/17 Bacterial Culture, Resulted Pending
[2017-12-28] MEDS ORDERED: NSS + 20MEQ KCL 1000ML 1,000 ML IV ONE ×2 (20:00→23:00)
[2017-12-28] MEDS ORDERED: POTASSIUM CHLORIDE 10 MEQ TABCR PO ONE (20:00)
[2017-12-28] MEDS ORDERED: MAGNESIUM SULFATE 1GM / D5W 100 ML IV ONE (21:15)
[2017-12-28] MEDS ORDERED: NSS + 20MEQ KCL 1000ML 1,000 ML IV SCH (22:00)
[2017-12-28 22:35] LABS: CALCIUM 8.2 mg/dl (8.5-10.1); CREATININE 0.98 mg/dl (0.60-1.40); POTASSIUM 3.2 mmol/L (3.5-5.1)
[2017-12-28 23:11] LABS: ALBUMIN 3.2 gm/dl (3.4-5.0)
[2017-12-28] MEDS: POTASSIUM CHLORIDE 10 MEQ TABCR PO STA ×2 (23:42)
[2017-12-29] MEDS ORDERED: POTASSIUM CHLORIDE PWD 20 MEQ PACK PO ONE ×2 (00:15→10:15)
[2017-12-29] MEDS ORDERED: PANTOprazole SOD 40 MG TAB PO STA (00:15)
[2017-12-29] MEDS ORDERED: INSULIN ASPART 100 UNITS/ML 3 ML PEN SC SCH (00:30)
[2017-12-29] MEDS: POTASSIUM CHLR 10 MEQ / WTR 100 ML IV SCH ×2 (00:32→01:46)
[2017-12-29] MEDS ORDERED: NSS + 20MEQ KCL 1000ML 1,000 ML IV SCH ×2 (01:00→04:15)
[2017-12-29] MEDS: INSULIN REGULAR 250 UNITS in SODIUM CHLORIDE 0.9% 250ML 250 ML IV SCH ×11 (01:11→22:09)
[2017-12-29] MEDS: CEFEPIME IV 2,000 MG in SYRINGE 7.5 ML IV SCH ×2 (02:10→13:47)
[2017-12-29 03:30] LABS: BASO % 0.2 %; BASO ABS # 0.02 K/uL (0-0.2); EOS % 1.8 %; EOS ABS # 0.15 K/uL (0-0.5); HEMATOCRIT 37.2 % (42-52); HEMOGLOBIN 13.5 g/dL (14.0-18.0); IG# 0.03 K/uL (0.00-0.02); LYMPH % 17.5 %; LYMPH ABS # 1.48 K/uL (1.2-3.4); MEAN CORPUSCULAR HEMOGLOBIN 30.1 pg (25-34); MEAN CORPUSCULAR HGB CONC 36.3 g/dl (32-36); MEAN PLATELET VOLUME 9.3 fL (7.4-10.4); MONO % 9.3 %; MONO ABS # 0.79 K/uL (0.11-0.59); NEUT % 70.8 %; NEUT ABS # 5.98 K/uL (1.4-6.5); PLATELET COUNT 197 K/uL (130-400); RED CELL DISTRIBUTION WIDTH CV 13.2 % (11.5-14.5); RED CELL DISTRIBUTION WIDTH SD 39.7 fL (36.4-46.3); WHITE BLOOD COUNT 8.45 K/uL (4.8-10.8)
[2017-12-29 03:49] LABS: CALCIUM 7.8 mg/dl (8.5-10.1); CREATININE 0.81 mg/dl (0.60-1.40); POTASSIUM 3.6 mmol/L (3.5-5.1)
[2017-12-29] MEDS ORDERED: NSS + 20MEQ KCL 1000ML 1,000 ML IV ONE ×2 (04:15→08:00)
[2017-12-29 05:21] VITALS: BP 118/78; PULSE 88; TEMP 36.5; O2SAT 97
[2017-12-29 07:12] VITALS: BP 115/77; PULSE 85; TEMP 36.4; O2SAT 98
[2017-12-29] MEDS: DOXYCYCLINE HYCLATE 100 MG CAP PO SCH ×2 (07:43→21:00)
[2017-12-29] MEDS: BuPROPion XL 150 MG TABCR PO SCH (07:43)
[2017-12-29] MEDS: NICOTINE 14 MG/24 HR TDSY TD SCH (07:43)
[2017-12-29] MEDS: ENOXAPARIN 40 MG/0.4 ML SYR SQ SCH ×2 (07:44→08:03)
[2017-12-29] MEDS ORDERED: INSULIN GLARGINE SOLOSTAR 100 UNITS/ML 3 ML PEN SC ONE (07:45)
[2017-12-29] MEDS: INSULIN ASPART 100 UNITS/ML 3 ML PEN SC SCH ×4 (08:08→20:59)
--- NOTE | 2017-12-29 09:35 | Clinical Documentation Query ---
CLINICAL DOCUMENTATION QUERY Dr. PUENTES, In your clinical opinion is this patient being managed for: ( x) possible metabolic encephalopathy treated and resolved ( ) Not Agree ( ) Other explanation of clinical findings (No explanation is considered a No Response) ( ) Unable to determine ( ) Need to Discuss (Phone CDS or qliq) (No discussion is considered a No Response) The medical record reflects the following clinical findings, treatment, and risk factors. Clinical Indicators: 22 yo male presenting with DKA and sepsis. Per ER documentation patient developed worsening confusion x 2 days. WBC 14.61, glucose 514, Cr 1.42, ABG 7.24//124. CT head without acute findings. Treatment: IV fluids including boluses, IV zosyn, IV insulin bolus then gtt, IV cefepime, IV doxycycline, CT head Risk Factors: sepsis, DKA, Please clarify and document your clinical opinion in the progress notes and discharge summary. Terms such as "probable", "suspected", "likely", "questionable", "possible", or "still to be ruled out" are acceptable. IF IN AGREEMENT, YOU MUST DOCUMENT ABOVE DIAGNOSTIC STATEMENT IN DAILY PROGRESS NOTES AND DISCHARGE SUMMARY. This document is not part of the patient's record. Thank You, Claribel Cervantes, RN [phone]
[2017-12-29 09:44] LABS: CALCIUM 8.3 mg/dl (8.5-10.1); CREATININE 0.75 mg/dl (0.60-1.40); POTASSIUM 3.1 mmol/L (3.5-5.1)
[2017-12-29 11:13] VITALS: BP 109/73; PULSE 116; TEMP 36.5; O2SAT 98
[2017-12-29 13:24] VITALS: BMI 26.8
--- NOTE | 2017-12-29 14:59 | Pharmacy Progress Note ---
Pharmacy Glycemic Short Note 2 Date of Service December 29, 2017. Outpatient Anti-diabetic Regimen: * n/a * A1c = 14.1% (12/27/17) ASSESSMENT: 12/29/17: * Patient was given Lantus 40 units x1 dose this morning, and insulin infusion remains at ~3.6 units/hr. * Patient's insulin needs have been greater than anticipated, based on weight. * Will continue to add Lantus until basal needs are more clear and drip is able to be weaned off. 12/28/17 * Mr Kamara is a 22yo previously undiagnosed diabetic, admitted with sepsis and found to be in DKA. * admission labs: BHBA 91.9, urine ketones 4+, BSG > 500, anion gap 22, CO2 10 , pH 7.2 * Patient was prescribed prednisone as an outpt recently, which likely contributed to DKA. * Patient's potassium level was 3.0 this morning, so insulin gtt was placed on hold for several hours until K+ replaced. Lantus dose was given in the mean time. * Repeat labs confirmed that DKA has not yet resolved and that K+ acceptable to resume IV insulin infusion. PLAN FOR INPATIENT GLYCEMIC CONTROL: * Continue IV insulin infusion * Goal Range 120 - 180 mg/dl * Recommend continuing insulin gtt until BSGs are consistently less than 180mg/ dL while at a drip rate of less than 2 units/hr. * Holding outpatient oral diabetes medications * Basal insulin with LANTUS 40 units SQ x1 dose this morning * Give an additional 20 units SQ x1 dose now * Correctional Insulin with NOVOLOG / REGULAR per scale PCHS while on insulin gtt * CHO coverage per Insulin Infusion Adjustment Calculator DISCHARGE PLANNING: * Patient's current A1c 14.1%. Patient will need to be discharged on an insulin regimen. * Recommendations once more is known about patient's insulin requirements. * CDE consulted and working with patient. * Please note that the plan above was derived based on current level of insulin resistance and hospital stress. These recommendations are appropriate for inpatient admission only. Plan of care upon discharge will need to be reassessed to avoid potential outpatient hypo/hyperglycemia. Thank you.
[2017-12-29 15:55] VITALS: BP 129/83; PULSE 87; TEMP 37; O2SAT 98
[2017-12-29 19:49] VITALS: BP 133/81; PULSE 86; TEMP 36.8; O2SAT 97
--- NOTE | 2017-12-29 20:08 | Progress Note ---
Internal Med Progress Note Date of Service: December 29, 2017. Provider Documentation: SUBJECTIVE: Patient awake and alert. Still on Insulin drip as per pharmacy glycemic control. Denies acute pain OBJECTIVE: Exam: General- no distress Eyes- EOMI Neck-no JVD Lungs- CTABL, no wheezing Heart- regular rate Abdomen- soft, nontender, + bowel sounds Extremities- no edema Neuro- awake and alert ASSESSMENT & PLAN: Severe sepsis -SIRS plus ARF secondary to right submental abscess (non-odontogenic infection) failed outpatient treatment -has been on IV Cefepime, oral Doxycycline, IV insulin, IVF -blood cultures no growth to date, abscess culture as staph -de-escalate antibiotics: will continue oral doxycycline and stop IV cefepime and start oral clindamycin diabetic ketoacidosis precipitated by sepsis, steroid Rx -patient was on outpatient steroid course, New diagnosis of diabetes -Inpatient Pharmacy glycemic control consult IV insulin, IVF,anion gap has been closing and patient received 80 meq oral potassium when serum potassium 3.1 this AM, check comprehensive metabolic panel, likely pharmacy glycemic consult will transition to subcutaneous insulin later tonight -Diabetic educations of DM -outpatient endocrine follow up Tobacco use -Nicotine patch. Mood/ anxiety disorder, stable as per patient -bupropion DVT prophylaxis, Heparin subQ. FULL CODE. Vital Signs: Date Time Temp Pulse Resp B/P (MAP) Pulse Ox O2 Delivery O2 Flow Rate FiO2 12/29/17 19:49 36.8 86 16 133/81 (98) 97 Room Air 12/29/17 16:00 Room Air 12/29/17 15:55 37.0 87 16 129/83 (98) 98 Room Air 12/29/17 12:00 Room Air 12/29/17 11:13 36.5 116 16 109/73 (85) 98 Room Air 12/29/17 08:00 Room Air 12/29/17 07:12 36.4 85 16 115/77 (90) 98 Room Air 12/29/17 05:21 36.5 88 14 118/78 (91) 97 Room Air 12/29/17 04:00 Room Air 12/29/17 01:23 Room Air 12/28/17 23:50 36.9 94 16 124/77 (93) 98 Room Air 12/28/17 20:17 36.6 94 18 132/79 (96) 99 Room Air Lab Results: Results Past 24 Hours Test 12/28/17 21:07 12/28/17 21:51 12/28/17 23:06 12/29/17 00:25 Range/Units Bedside Glucose 186 179 170 70-99 mg/dl Sodium Level 133 136-145 mmol/L Potassium Level 3.2 3.5-5.1 mmol/L Chloride Level 104 98-107 mmol/L Carbon Dioxide Level 17 21-32 mmol/L Anion Gap 12.0 3-11 mmol/L Blood Urea Nitrogen 6 7-18 mg/dl Creatinine 0.98 0.60-1.40 mg/dl Est Creatinine Clear Calc Drug Dose 138.9 ml/min Estimated GFR () 124.6 Estimated GFR (Non- 107.5 BUN/Creatinine Ratio 5.7 10-20 Random Glucose 161 70-99 mg/dl Calcium Level 8.2 8.5-10.1 mg/dl Albumin 3.2 3.4-5.0 gm/dl Test 12/29/17 01:01 12/29/17 02:03 12/29/17 03:02 12/29/17 03:07 Range/Units Bedside Glucose 183 245 232 70-99 mg/dl White Blood Count 8.45 4.8-10.8 K/uL Red Blood Count 4.48 4.7-6.1 M/uL Hemoglobin 13.5 14.0-18.0 g/dL Hematocrit 37.2 42-52 % Mean Corpuscular Volume 83.0 80-100 fL Mean Corpuscular Hemoglobin 30.1 25-34 pg Mean Corpuscular Hemoglobin Concent 36.3 32-36 g/dl Platelet Count 197 130-400 K/uL Mean Platelet Volume 9.3 7.4-10.4 fL Neutrophils (%) (Auto) 70.8 % Lymphocytes (%) (Auto) 17.5 % Monocytes (%) (Auto) 9.3 % Eosinophils (%) (Auto) 1.8 % Basophils (%) (Auto) 0.2 % Neutrophils # (Auto) 5.98 1.4-6.5 K/uL Lymphocytes # (Auto) 1.48 1.2-3.4 K/uL Monocytes # (Auto) 0.79 0.11-0.59 K/uL Eosinophils # (Auto) 0.15 0-0.5 K/uL Basophils # (Auto) 0.02 0-0.2 K/uL RDW Standard Deviation 39.7 36.4-46.3 fL RDW Coefficient of Variation 13.2 11.5-14.5 % Immature Granulocyte % (Auto) 0.4 % Immature Granulocyte # (Auto) 0.03 0.00-0.02 K/uL Sodium Level 136 136-145 mmol/L Potassium Level 3.6 3.5-5.1 mmol/L Chloride Level 108 98-107 mmol/L Carbon Dioxide Level 18 21-32 mmol/L Anion Gap 10.0 3-11 mmol/L Blood Urea Nitrogen 5 7-18 mg/dl Creatinine 0.81 0.60-1.40 mg/dl Est Creatinine Clear Calc Drug Dose 168.1 ml/min Estimated GFR () 144.2 Estimated GFR (Non- 124.4 BUN/Creatinine Ratio 5.9 10-20 Random Glucose 210 70-99 mg/dl Calcium Level 7.8 8.5-10.1 mg/dl Magnesium Level 2.0 1.8-2.4 mg/dl Albumin 3.0 3.4-5.0 gm/dl Test 12/29/17 04:07 12/29/17 05:03 12/29/17 06:02 12/29/17 07:02 Range/Units Bedside Glucose 205 176 160 142 70-99 mg/dl Test 12/29/17 07:59 12/29/17 08:45 12/29/17 09:57 12/29/17 11:55 Range/Units Bedside Glucose 137 169 113 70-99 mg/dl Sodium Level 137 136-145 mmol/L Potassium Level 3.1 3.5-5.1 mmol/L Chloride Level 106 98-107 mmol/L Carbon Dioxide Level 21 21-32 mmol/L Anion Gap 10.0 3-11 mmol/L Blood Urea Nitrogen 4 7-18 mg/dl Creatinine 0.75 0.60-1.40 mg/dl Est Creatinine Clear Calc Drug Dose 181.5 ml/min Estimated GFR () 148.8 Estimated GFR (Non- 128.4 BUN/Creatinine Ratio 4.7 10-20 Random Glucose 125 70-99 mg/dl Calcium Level 8.3 8.5-10.1 mg/dl Test 12/29/17 14:58 12/29/17 17:05 12/29/17 18:01 12/29/17 18:47 Range/Units Bedside Glucose 121 87 186 187 70-99 mg/dl
[2017-12-29 20:51] LABS: ALBUMIN 3.2 gm/dl (3.4-5.0); CALCIUM 8.5 mg/dl (8.5-10.1); CREATININE 0.75 mg/dl (0.60-1.40); POTASSIUM 2.9 mmol/L (3.5-5.1); TOTAL PROTEIN 6.6 gm/dl (6.4-8.2)
[2017-12-29] MEDS: CLINDAMYCIN HCL 150 MG CAP PO SCH (21:00)
[2017-12-29] MEDS ORDERED: POTASSIUM CHLORIDE 10 MEQ TABCR PO ONE (23:15)
[2017-12-29 23:30] VITALS: BP 113/75; PULSE 94; TEMP 36.4; O2SAT 98
[2017-12-30] MEDS ORDERED: POTASSIUM CHLORIDE PWD 20 MEQ PACK PO ONE (01:00)
[2017-12-30] MEDS ORDERED: POTASSIUM CHLORIDE 10 MEQ TABCR PO ONE (01:00)
[2017-12-30] MEDS: CLINDAMYCIN HCL 150 MG CAP PO SCH ×4 (02:45→20:21)
[2017-12-30] MEDS: INSULIN ASPART 100 UNITS/ML 3 ML PEN SC SCH ×6 (04:00→20:50)
[2017-12-30 04:15] VITALS: BP 120/77; PULSE 85; TEMP 36.4; O2SAT 97
[2017-12-30 07:03] LABS: BLOOD UREA NITROGEN 4 mg/dl (7-18); CALCIUM 8.7 mg/dl (8.5-10.1); CARBON DIOXIDE 24 mmol/L (21-32); CREATININE 0.63 mg/dl (0.60-1.40); GLUCOSE 207 mg/dl (70-99); POTASSIUM 3.2 mmol/L (3.5-5.1); SODIUM 137 mmol/L (136-145)
[2017-12-30 07:16] VITALS: BP 120/70; PULSE 76; TEMP 36.4; O2SAT 97
[2017-12-30] MEDS: ENOXAPARIN 40 MG/0.4 ML SYR SQ SCH (07:27)
[2017-12-30] MEDS: DOXYCYCLINE HYCLATE 100 MG CAP PO SCH (07:45)
[2017-12-30] MEDS: BuPROPion XL 150 MG TABCR PO SCH (07:45)
[2017-12-30] MEDS: NICOTINE 14 MG/24 HR TDSY TD SCH (07:45)
[2017-12-30] MEDS ORDERED: INSULIN GLARGINE SOLOSTAR 100 UNITS/ML 3 ML PEN SC ONE (08:00)
[2017-12-30] MEDS ORDERED: NSS + 20MEQ KCL 1000ML 1,000 ML IV SCH (08:00)
--- NOTE | 2017-12-30 10:22 | Pharmacy Progress Note ---
Pharmacy Glycemic Short Note 2 Date of Service December 30, 2017. Outpatient Anti-diabetic Regimen: * n/a * A1c = 14.1% (12/27/17) ASSESSMENT: 12/30/17: * Patient's BSGs became appropriate for discontinuation of IV insulin infusion late last night. * Insulin infusion was stopped. BSG elevated so far today. * It's looking like patient's basal needs may be ~80 units/day? Slightly larger dose given this morning to make up for basal deficit from yesterday. * Novolog parameters tightened this afternoon to provide additional correction/ prandial coverage. 12/29/17 * Patient was given Lantus 40 units x1 dose this morning, and insulin infusion remains at ~3.6 units/hr. * Patient's insulin needs have been greater than anticipated, based on weight. * Will continue to add Lantus until basal needs are more clear and drip is able to be weaned off. 12/28/17 * Mr Kamara is a 22yo previously undiagnosed diabetic, admitted with sepsis and found to be in DKA. * admission labs: BHBA 91.9, urine ketones 4+, BSG > 500, anion gap 22, CO2 10 , pH 7.2 * Patient was prescribed prednisone as an outpt recently, which likely contributed to DKA. * Patient's potassium level was 3.0 this morning, so insulin gtt was placed on hold for several hours until K+ replaced. Lantus dose was given in the mean time. * Repeat labs confirmed that DKA has not yet resolved and that K+ acceptable to resume IV insulin infusion. PLAN FOR INPATIENT GLYCEMIC CONTROL: * Basal insulin with LANTUS 60 units SQ x1 dose this morning * Will trial Lantus 40 units SQ BID, starting this evening * Bolus insulin * NovoLog per scale ACHS or Q6hrs while NPO, plus [id number] * Goal Range: Low 110 mg/dL - High 140 mg/dL * Correction Factor: 15 mg/dL/unit * Nutritional / Prandial insulin per carb ratio of 1 unit per 6 grams CHO consumed DISCHARGE PLANNING: * Patient's current A1c 14.1%. Patient will need to be discharged on an insulin regimen. * Based on current information, a reasonable starting regimen for discharge might be: * Lantus 40 units SQ BID -- consider adding a hold or half-dose parameter for "low" BSG * Novolog 8-10 units SQ with each meal * Patient will need to monitor BSGs frequently and f/u with PCP/endocrinology [facility] after discharge until appropriate outpt regimen is determined. * Insulin needs may decrease as insulin resistance lessens. * Goal would be to get patient on once-daily Lantus (or Toujeo) and start counting/covering carbs with Novolog (rather than using set doses). * CDE consulted and working with patient. * Please note that the plan above was derived based on current level of insulin resistance and hospital stress. These recommendations are appropriate for inpatient admission only. Plan of care upon discharge will need to be reassessed to avoid potential outpatient hypo/hyperglycemia. Thank you.
[2017-12-30 11:47] VITALS: Ht 190.5 cm; Wt 98.1 kg
[2017-12-30 12:11] VITALS: BP 116/74; PULSE 102; TEMP 36.7; O2SAT 98
[2017-12-30 15:07] VITALS: BP 111/74; PULSE 71; TEMP 36.9; O2SAT 97
--- NOTE | 2017-12-30 19:04 | Progress Note ---
Internal Med Progress Note Date of Service: December 30, 2017. Provider Documentation: SUBJECTIVE: Patient awake and alert. Now on subcutaneous insulin. Ambulatory but is tachycardic with ambulation 110s to 115s. Also the the skin under right chin swelling again OBJECTIVE: Exam: General- no distress Eyes- EOMI Face - the skin under right chin swelling again, no drainage as the skin is intact Neck-no JVD Lungs- CTABL, no wheezing Heart- regular rate Abdomen- soft, nontender, + bowel sounds Extremities- no edema Neuro- awake and alert ASSESSMENT & PLAN: Severe sepsis -SIRS plus ARF secondary to right submental abscess (non-odontogenic infection) failed outpatient treatment -was empirically been on IV Cefepime, oral Doxycycline, IV insulin, IVF -blood cultures no growth to date, abscess culture as staph -de-escalate antibiotics on 12/30/17: will continue oral doxycycline and stop IV cefepime and start oral clindamycin -abscess culture further speciated as pansensitive staph on 12/30/17 and only oral clindamycin continued -12/30/17 the right submental abscess which was previously drained in the ED on admission appears to be collecting bodily fluids again as the skin is more fluctuant, consult general surgery to assist with Incision and drainage diabetic ketoacidosis precipitated by sepsis, steroid Rx -patient was on outpatient steroid course, New diagnosis of diabetes -Inpatient Pharmacy glycemic control consult: switched from IV insulin drip to subcutaneous insulin between 12/29/17 and 12/30/17, continue subcutaneous insulin -Diabetic educations of DM -outpatient endocrine follow up Hypokalemia -continue to replete potassium by giving in IV fluids Tachycardia with ambulation -Despite the improvements of the white blood cell counts and patient afebrile and resolution of DKA, continues to have some tachycardia especially with ambulation -echocardiogram ordered Tobacco use -Nicotine patch. Mood/ anxiety disorder, stable as per patient -bupropion DVT prophylaxis, lovenox FULL CODE. Vital Signs: Date Time Temp Pulse Resp B/P (MAP) Pulse Ox O2 Delivery O2 Flow Rate FiO2 12/30/17 16:00 Room Air 12/30/17 15:07 36.9 71 18 111/74 (86) 97 Room Air 12/30/17 12:11 36.7 102 18 116/74 (88) 98 Room Air 12/30/17 12:00 Room Air 12/30/17 08:00 Room Air 12/30/17 07:16 36.4 76 16 120/70 (87) 97 Room Air 12/30/17 04:15 36.4 85 14 120/77 (91) 97 Room Air 12/30/17 04:00 Room Air 12/30/17 00:00 Room Air 12/29/17 23:30 36.4 94 14 113/75 (88) 98 12/29/17 20:00 Room Air 12/29/17 19:49 36.8 86 16 133/81 (98) 97 Room Air Lab Results: Results Past 24 Hours Test 12/29/17 19:59 12/29/17 20:19 12/29/17 21:03 12/29/17 22:02 Range/Units Bedside Glucose 170 173 131 117 70-99 mg/dl Sodium Level 134 136-145 mmol/L Potassium Level 2.9 3.5-5.1 mmol/L Chloride Level 100 98-107 mmol/L Carbon Dioxide Level 22 21-32 mmol/L Anion Gap 11.0 3-11 mmol/L Blood Urea Nitrogen 5 7-18 mg/dl Creatinine 0.75 0.60-1.40 mg/dl Est Creatinine Clear Calc Drug Dose 181.5 ml/min Estimated GFR () 148.8 Estimated GFR (Non- 128.4 BUN/Creatinine Ratio 6.6 10-20 Random Glucose 159 70-99 mg/dl Calcium Level 8.5 8.5-10.1 mg/dl Total Bilirubin 0.4 0.2-1 mg/dl Aspartate Amino Transf (AST/SGOT) 13 15-37 U/L Alanine Aminotransferase (ALT/SGPT) 17 12-78 U/L Alkaline Phosphatase 75 45-117 U/L Total Protein 6.6 6.4-8.2 gm/dl Albumin 3.2 3.4-5.0 gm/dl Globulin 3.4 2.5-4.0 gm/dl Albumin/Globulin Ratio 0.9 0.9-2 Test 12/29/17 23:01 12/30/17 00:21 12/30/17 04:05 12/30/17 06:07 Range/Units Bedside Glucose 107 133 178 70-99 mg/dl Sodium Level 137 136-145 mmol/L Potassium Level 3.2 3.5-5.1 mmol/L Chloride Level 101 98-107 mmol/L Carbon Dioxide Level 24 21-32 mmol/L Anion Gap 12.0 3-11 mmol/L Blood Urea Nitrogen 4 7-18 mg/dl Creatinine 0.63 0.60-1.40 mg/dl Est Creatinine Clear Calc Drug Dose 216.1 ml/min Estimated GFR () > 150.0 Estimated GFR (Non- 137.9 BUN/Creatinine Ratio 6.1 10-20 Random Glucose 207 70-99 mg/dl Calcium Level 8.7 8.5-10.1 mg/dl Test 12/30/17 07:13 12/30/17 11:45 12/30/17 16:06 Range/Units Bedside Glucose 212 285 102 70-99 mg/dl
[2017-12-30 19:30] VITALS: BP 104/72; PULSE 96; TEMP 36.9; O2SAT 96
--- NOTE | 2017-12-30 20:46 | Pre-Operative Consultation ---
History General Date of Service: December 30, 2017. HPI HPI: The patient is a 22 year old male being seen for right submental abscess with failed previous drainage. He is currently without fevers and pain is minimal. The errythema has improved but still sore.He denies any other constitutional symptoms. He was admitted with uncontrolled new onset DM. Procedure Urgency: Acute Risk Assessment Daily beta sandy use?: No Problem List Medical Problems: (1) DKA (diabetic ketoacidoses) Status: Acute (2) Facial abscess Status: Acute (3) Orthostatic hypotension Status: Acute (4) Pancreatitis Status: Acute Medical & Surgical History Past Medical History: anxiety, depression, diabetes Past Surgical History: no surgical history Family History Family History: diabetes Social History Hx Tobacco Use In Past Year?: Yes Smoking Status: Current Every Day Smoker Alcohol: occasionally Drug Use: marijuana Marital status: single Occupation status: employed Allergies Allergies: Coded Allergies: Kerosene (Verified Allergy, Unknown, Vomiting, 12/27/17) Medications Current Inpatient Medications Current Inpatient Medications Medications (Trade) Dose Ordered Sig/Xena Route Start Time Stop Time Status Last Admin Dose Admin Glucose (Glucose 40% Gel) 15-30 GRAMS 15 GRAMS... UD PRN PO 12/27/17 23:00 01/26/18 22:59 Glucose (Glucose Chew Tab) 4-8 Tablets 4 Tabl... UD PRN PO 12/27/17 23:00 01/26/18 22:59 Dextrose (Dextrose 50% 50ML Syringe) 25-50ML 25ML FOR ... UD PRN IV 12/27/17 23:00 01/26/18 22:59 Glucagon (Glucagon Inj) 1 mg UD PRN IM 12/27/17 23:00 01/26/18 22:59 Carbohydrates (Carbohydrates For Hypoglycemia) 15-30 GRAMS 15 grams if BSG 54-69... UD PRN PO 12/27/17 23:00 01/26/18 22:59 Nicotine (Nicoderm Cq 14MG Patch) 1 patch QAM TD 12/29/17 09:00 01/28/18 08:59 12/30/17 07:45 1 PATCH Miscellaneous (Remove Nicoderm Patch) 1 ea HS N/A 12/28/17 21:00 01/27/18 20:59 12/30/17 20:21 1 EA Acetaminophen (Tylenol Tab) 650 mg Q4H PRN PO 12/28/17 01:15 01/27/18 01:14 Nitroglycerin (Nitrostat Tab) 0.4 mg UD PRN SL 12/28/17 01:15 01/27/18 01:14 Hydromorphone HCl (Dilaudid Inj) 0.5 mg Q3H PRN IV 12/28/17 01:15 01/11/18 01:14 Tramadol HCl (Ultram Tab) not relieved by tylenol @ Q6H PRN PO 12/28/17 01:15 01/27/18 01:14 Prochlorperazine Edisylate 5 mg/ Syringe 5 ml @ 5 mls/min Q6H PRN IV 12/28/17 01:15 01/27/18 01:14 Lorazepam (Ativan Inj) 0.5 mg Q4H PRN IV 12/28/17 01:15 01/27/18 01:14 Miscellaneous Information (Consult Glycemic Management Pharmacy) 1 ea UD PRN N/A 12/28/17 07:34 01/27/18 07:33 Bupropion HCl (Wellbutrin-Xl Tab) 150 mg DAILY PO 12/28/17 16:00 01/27/18 15:59 12/30/17 07:45 150 MG Enoxaparin Sodium (Lovenox Inj) 40 mg DAILY SQ 12/29/17 09:00 01/28/18 08:59 Clindamycin HCl (Cleocin Cap) 300 mg Q6H PO 12/29/17 21:00 01/08/18 20:59 12/30/17 20:21 300 MG Insulin Aspart (novoLOG ASPART) SLIDING SCALE Q4 SC 12/30/17 00:00 01/29/18 00:00 12/30/17 16:56 5 UNITS Insulin Glargine (Lantus Solostar Pen) see protocol text BID SC 12/30/17 21:00 01/29/18 20:59 Review of Systems Review of Systems Constitutional: denies chills, denies diaphoresis, denies fever Eyes: reports: no symptoms ENT: reports: no symptoms reported Cardiovascular: denies: chest pain, chest tightness, chest pressure, palpitations Respiratory: denies: short of breath, stridor, cyanosis Gastrointestinal: denies abdominal pain, denies constipation, denies diarrhea, denies nausea, denies vomiting Genitourinary - Male: reports: no symptoms Musculoskeletal: denies joint pain, denies joint swelling, denies muscle stiffness, denies neck pain Integumentary: denies change in color, denies change in hair/nails, denies dryness, denies lumps, denies rash Neurologic: reports: no symptoms Psychiatric: reports: no symptoms Endocrine: no symptoms Hematologic / Lymphatic: denies: anemia, easy bleeding, gums bleeding, petechiae Allergic / Immunologic: no symptoms Physical Exam Physical Exam General Appearance: + WD/WN, No distress Ears, Nose, Throat: + normal ENT inspection Neck: + abnormal inspection (3cm fluctuant erthematous right submental abscess) , No tracheal deviation, No lymphadenophy, No stiffness, No tenderness Respiratory: No decreased breath sounds, No rhonchi, No stridor, No wheezing Cardiovascular: No tachycardia, No gallop/S3, No diastolic murmur, No gallop/S4 , No bradycardia, No systolic murmur Abdomen: No abnormal bowel sounds, No tenderness, No distension, No hernia, No organomegaly, No guarding Extremities: No abnormal range of motion, No deformity, No swelling, No calf tenderness, No inflammation Neurologic/Psychiatric: No motor deficit/weakness, No disorientation, No sensory deficit Skin Characteristics: No diaphoresis, No pallor, No jaundice, No rash Lymphatic: No abnormal adenopathy Diagnostics Labs Labs Results Past 24 Hours Test 12/29/17 21:03 12/29/17 22:02 12/29/17 23:01 12/30/17 00:21 Range/Units Bedside Glucose 131 117 107 133 70-99 mg/dl Test 12/30/17 04:05 12/30/17 06:07 12/30/17 07:13 12/30/17 11:45 Range/Units Bedside Glucose 178 212 285 70-99 mg/dl Sodium Level 137 136-145 mmol/L Potassium Level 3.2 3.5-5.1 mmol/L Chloride Level 101 98-107 mmol/L Carbon Dioxide Level 24 21-32 mmol/L Anion Gap 12.0 3-11 mmol/L Blood Urea Nitrogen 4 7-18 mg/dl Creatinine 0.63 0.60-1.40 mg/dl Est Creatinine Clear Calc Drug Dose 216.1 ml/min Estimated GFR () > 150.0 Estimated GFR (Non- 137.9 BUN/Creatinine Ratio 6.1 10-20 Random Glucose 207 70-99 mg/dl Calcium Level 8.7 8.5-10.1 mg/dl Test 12/30/17 16:06 Range/Units Bedside Glucose 102 70-99 mg/dl Impression Assessment and Plan Assessment and Plan right submental abscess previously drained and recurrent -will I&D at bedside in AM
[2017-12-30] MEDS: INSULIN GLARGINE SOLOSTAR 100 UNITS/ML 3 ML PEN SC SCH (20:51)
[2017-12-31] VITALS (9 sets, daily range): BP systolic 103–118; BP diastolic 66–76; PULSE 65–89; TEMP 36.4–36.7; O2SAT 97–99
[2017-12-31] MEDS: INSULIN ASPART 100 UNITS/ML 3 ML PEN SC SCH ×6 (00:06→22:00)
[2017-12-31] MEDS: CLINDAMYCIN HCL 150 MG CAP PO SCH ×4 (03:58→21:56)
[2017-12-31 06:31] LABS: BASO % 0.7 %; BASO ABS # 0.03 K/uL (0-0.2); EOS % 4.4 %; HEMATOCRIT 37.5 % (42-52); IG# 0.01 K/uL (0.00-0.02); LYMPH % 37.7 %; LYMPH ABS # 1.72 K/uL (1.2-3.4); MEAN CELL VOLUME 85.6 fL (80-100); MEAN CORPUSCULAR HEMOGLOBIN 29.7 pg (25-34); MEAN CORPUSCULAR HGB CONC 34.7 g/dl (32-36); MEAN PLATELET VOLUME 9.7 fL (7.4-10.4); MONO % 13.2 %; NEUT % 43.8 %; PLATELET COUNT 172 K/uL (130-400); RED CELL DISTRIBUTION WIDTH CV 13.1 % (11.5-14.5); WHITE BLOOD COUNT 4.56 K/uL (4.8-10.8)
[2017-12-31 07:12] LABS: ALBUMIN 2.9 gm/dl (3.4-5.0); ALKALINE PHOSPHATASE 61 U/L (45-117); ALT/SGPT 14 U/L (12-78); AST/SGOT 12 U/L (15-37); BLOOD UREA NITROGEN 5 mg/dl (7-18); CARBON DIOXIDE 30 mmol/L (21-32); CREATININE 0.37 mg/dl (0.60-1.40); GLUCOSE 80 mg/dl (70-99); POTASSIUM 2.8 mmol/L (3.5-5.1); SODIUM 142 mmol/L (136-145); TOTAL PROTEIN 6.1 gm/dl (6.4-8.2)
[2017-12-31] MEDS ORDERED: POTASSIUM CHLORIDE 20 MEQ TABCR PO STA (08:08)
[2017-12-31] MEDS: BuPROPion XL 150 MG TABCR PO SCH (08:19)
[2017-12-31] MEDS: NICOTINE 14 MG/24 HR TDSY TD SCH ×2 (08:19→16:29)
[2017-12-31] MEDS: ENOXAPARIN 40 MG/0.4 ML SYR SQ SCH (08:19)
[2017-12-31] MEDS: INSULIN GLARGINE SOLOSTAR 100 UNITS/ML 3 ML PEN SC SCH ×2 (08:29→22:01)
--- NOTE | 2017-12-31 09:15 | Pharmacy Progress Note ---
Pharmacy Glycemic Short Note 2 Date of Service December 31, 2017. Outpatient Anti-diabetic Regimen: * n/a * A1c = 14.1% (12/27/17) Test 12/30/17 11:45 12/30/17 16:06 12/30/17 20:28 12/31/17 00:02 Bedside Glucose 285 mg/dl (70-99) 102 mg/dl (70-99) 146 mg/dl (70-99) 238 mg/dl (70-99) Test 12/31/17 03:56 12/31/17 05:38 12/31/17 07:29 Bedside Glucose 96 mg/dl (70-99) 106 mg/dl (70-99) Random Glucose 80 mg/dl (70-99) ASSESSMENT: 12/31/17 * Patient received 143 units of insulin yesterday * No changes to causes of insulin resistance * 100 units of basal given yesterday to make up for reduced basal on 12/29 * Fasting BSG acceptable but continuing w/ 80-100 units of basal/day will most likely be too much * Estimating total basal ~70 units * Will continue current CF/CR for now 12/30/17: * Patient's BSGs became appropriate for discontinuation of IV insulin infusion late last night. * Insulin infusion was stopped. BSG elevated so far today. * It's looking like patient's basal needs may be ~80 units/day? Slightly larger dose given this morning to make up for basal deficit from yesterday. * Novolog parameters tightened this afternoon to provide additional correction/ prandial coverage. 12/29/17 * Patient was given Lantus 40 units x1 dose this morning, and insulin infusion remains at ~3.6 units/hr. * Patient's insulin needs have been greater than anticipated, based on weight. * Will continue to add Lantus until basal needs are more clear and drip is able to be weaned off. 12/28/17 * Mr Kamara is a 22yo previously undiagnosed diabetic, admitted with sepsis and found to be in DKA. * admission labs: BHBA 91.9, urine ketones 4+, BSG > 500, anion gap 22, CO2 10 , pH 7.2 * Patient was prescribed prednisone as an outpt recently, which likely contributed to DKA. * Patient's potassium level was 3.0 this morning, so insulin gtt was placed on hold for several hours until K+ replaced. Lantus dose was given in the mean time. * Repeat labs confirmed that DKA has not yet resolved and that K+ acceptable to resume IV insulin infusion. PLAN FOR INPATIENT GLYCEMIC CONTROL: * Basal insulin: adjust scale * Lantus 30 units BID for BSG 140 or less * Lantus 40 units BID for BSG above 140 * Bolus insulin - change back to ACHS * NovoLog per scale ACHS or Q6hrs while NPO * Goal Range: Low 110 mg/dL - High 140 mg/dL * Correction Factor: 15 mg/dL/unit * Nutritional / Prandial insulin per carb ratio of 1 unit per 6 grams CHO consumed DISCHARGE PLANNING: * Patient's current A1c 14.1%. Patient will need to be discharged on an insulin regimen. * Based on current information, a reasonable starting regimen for discharge might be: * Lantus 35 units SQ BID -- consider adding a hold or half-dose parameter for "low" BSG * Novolog 8-10 units SQ with each meal * Patient will need to monitor BSGs frequently and f/u with PCP/endocrinology [facility] after discharge until appropriate outpt regimen is determined. * Insulin needs may decrease as insulin resistance lessens. * Goal would be to get patient on once-daily Lantus (or Toujeo) and start counting/covering carbs with Novolog (rather than using set doses). * CDE consulted and working with patient. * Please note that the plan above was derived based on current level of insulin resistance and hospital stress. These recommendations are appropriate for inpatient admission only. Plan of care upon discharge will need to be reassessed to avoid potential outpatient hypo/hyperglycemia. Thank you.
[2017-12-31] MEDS: POTASSIUM CHLR 10 MEQ / WTR 100 ML IV SCH ×4 (09:57→13:23)
[2017-12-31] MEDS ORDERED: LIDOCAINE HCL 1% 20 ML VIAL ONE (11:53)
--- NOTE | 2017-12-31 12:12 | Surgery Progress Note ---
Surgery Progress Note Date of Service December 31, 2017. Subjective Post OP Day: HD 5 + feeling well, No complaints Objective Vital Signs: Date Time Temp Pulse Resp B/P (MAP) Pulse Ox O2 Delivery O2 Flow Rate FiO2 12/31/17 08:00 97 Room Air 12/31/17 07:05 36.5 65 17 107/69 (82) 97 Room Air 12/31/17 04:35 36.4 75 18 113/68 (83) 97 Room Air 12/31/17 04:00 Room Air 12/31/17 01:04 36.6 89 17 115/70 (85) 98 Room Air 12/31/17 00:00 Room Air 12/30/17 20:00 Room Air 12/30/17 19:30 36.9 96 16 104/72 (83) 96 Room Air 12/30/17 16:00 Room Air 12/30/17 15:07 36.9 71 18 111/74 (86) 97 Room Air 12/30/17 12:11 36.7 102 18 116/74 (88) 98 Room Air General Appearance: WD/WN, no apparent distress Head: normocephalic, atraumatic Neck: supple, + pertinent finding (submental abscess) Respiratory/Chest: lungs clear Cardiovascular: regular rate, rhythm Abdomen: normal bowel sounds, non tender, non distended, soft Extremities: non-tender, no pedal edema Laboratory Results: Results Past 24 Hours Test 12/30/17 16:06 12/30/17 20:28 12/31/17 00:02 12/31/17 03:56 Range/Units Bedside Glucose 102 146 238 96 70-99 mg/dl Test 12/31/17 05:38 12/31/17 07:29 12/31/17 10:25 Range/Units White Blood Count 4.56 4.8-10.8 K/uL Red Blood Count 4.38 4.7-6.1 M/uL Hemoglobin 13.0 14.0-18.0 g/dL Hematocrit 37.5 42-52 % Mean Corpuscular Volume 85.6 80-100 fL Mean Corpuscular Hemoglobin 29.7 25-34 pg Mean Corpuscular Hemoglobin Concent 34.7 32-36 g/dl Platelet Count 172 130-400 K/uL Mean Platelet Volume 9.7 7.4-10.4 fL Neutrophils (%) (Auto) 43.8 % Lymphocytes (%) (Auto) 37.7 % Monocytes (%) (Auto) 13.2 % Eosinophils (%) (Auto) 4.4 % Basophils (%) (Auto) 0.7 % Neutrophils # (Auto) 2.00 1.4-6.5 K/uL Lymphocytes # (Auto) 1.72 1.2-3.4 K/uL Monocytes # (Auto) 0.60 0.11-0.59 K/uL Eosinophils # (Auto) 0.20 0-0.5 K/uL Basophils # (Auto) 0.03 0-0.2 K/uL RDW Standard Deviation 41.0 36.4-46.3 fL RDW Coefficient of Variation 13.1 11.5-14.5 % Immature Granulocyte % (Auto) 0.2 % Immature Granulocyte # (Auto) 0.01 0.00-0.02 K/uL Sodium Level 142 136-145 mmol/L Potassium Level 2.8 3.5-5.1 mmol/L Chloride Level 103 98-107 mmol/L Carbon Dioxide Level 30 21-32 mmol/L Anion Gap 9.0 3-11 mmol/L Blood Urea Nitrogen 5 7-18 mg/dl Creatinine 0.37 0.60-1.40 mg/dl Est Creatinine Clear Calc Drug Dose 367.9 ml/min Estimated GFR () > 150.0 Estimated GFR (Non- > 150.0 BUN/Creatinine Ratio 13.7 10-20 Random Glucose 80 70-99 mg/dl Calcium Level 9.0 8.5-10.1 mg/dl Magnesium Level 2.1 1.8-2.4 mg/dl Total Bilirubin 0.4 0.2-1 mg/dl Aspartate Amino Transf (AST/SGOT) 12 15-37 U/L Alanine Aminotransferase (ALT/SGPT) 14 12-78 U/L Alkaline Phosphatase 61 45-117 U/L Total Protein 6.1 6.4-8.2 gm/dl Albumin 2.9 3.4-5.0 gm/dl Globulin 3.2 2.5-4.0 gm/dl Albumin/Globulin Ratio 0.9 0.9-2 Bedside Glucose 106 70-99 mg/dl Urine Random Potassium 10.9 mEq/L Assessment & Plan submental right sided abscess -will plan I&D of deep right submental abscess at bedside -verbal consent given
--- NOTE | 2017-12-31 12:31 | OPERATIVE REPORT ---
DATE OF OPERATION: 12/31/2017 PREOPERATIVE DIAGNOSIS: Right submental deep neck abscess. POSTOPERATIVE DIAGNOSIS: Same. PROCEDURE PERFORMED: I and D of abscess. SURGEON: Dr. Ollie Jurado. PULVERIZER OPERATOR: None. ANESTHESIA: 1% Xylocaine local. ESTIMATED BLOOD LOSS: 2 mL. INDICATION FOR PROCEDURE: This is a 22-year-old male with new onset diabetes with a right submental abscess. This was previously attempted to be drained, but he continues to have tenderness and fluctuance at this area. We will plan on doing an I and D at the bedside. He understands the risk of bleeding and recurrent abscess. DESCRIPTION OF PROCEDURE: The patient was placed in supine position. His right neck was prepped and draped in sterile fashion. 1% Xylocaine was used to create a local field block. Incision was made and entrance into the abscess was obtained. There was a little pus and blood which was drained. This was then opened with a hemostat to ensure that it was widely drained with no pockets. Once this was done, this was packed with gauze and sterile dressing was applied. He tolerated the procedure well without complications. I attest to the content of the Intraoperative Record and any orders documented therein. Any exception s are noted below.
[2017-12-31] MEDS ORDERED: NICO14DI5 TD (14:04)
[2017-12-31] MEDS ORDERED: LANC-393 (14:04)
[2017-12-31] MEDS ORDERED: GLUC1TES34 EXT (14:08)
[2017-12-31] MEDS ORDERED: INSU32MI13 (14:19)
[2017-12-31] MEDS ORDERED: NVLGIPEN SC (14:41)
[2017-12-31] MEDS ORDERED: INSDGIPEN SC (14:41)
--- NOTE | 2017-12-31 15:00 | ECHOCARDIOGRAM REPORT ---
*NOTICE TO RECEIVING [employer] This information is strictly Confidential and protected under [place] law. [place] law prohibits you from making any further disclosure of this information unless further disclosure is expressly permitted by the written consent of the person to whom it pertains or is authorized by law. A general authorization for the release of medical or other information is not sufficient for this purpose. Hospital accepts no responsibility if the information is made available to any other person, INCLUDING THE PATIENT. Interpretation Summary * Name: CLAUDIA ALAMO Study Date: 12/31/2017 09:31 AM BP: 113/68 mmHg * Patient Location: .[facility]\S\N275\S\2 HR: 75 * : 1995 (M/d/yyyy) Gender: Male Height: 75 in * Age: 22 yrs Ethnicity: [place] Weight: 214 lb * Ordering Physician: Michelet Kearns * Referring Physician: Self, Referred * Performed By: Cecilia Angel RDCS * * Reason For Study: Tachycardia with ambulation * BSA: 2.3 m2 * -- Conclusions -- * Study was technically adequate. * Sinus rhythm with range of 80-85 bpm was noted during the echocardiogram. * There is normal left ventricular wall thickness. * The left ventricular wall motion is normal. * The LV Ejection Fraction = 55-60%. * The LV diastolic function is normal. * There is no significant valvular heart disease. Procedure Details * A complete two-dimensional transthoracic echocardiogram was performed (2D, M-mode, Doppler and color flow Doppler). Left Ventricle * The left ventricle is normal in size. * There is normal left ventricular wall thickness. * Ejection Fraction = 55-60%. * Left ventricular systolic function is normal. * The left ventricular wall motion is normal. Right Ventricle * The right ventricle is normal size. * The right ventricular systolic function is normal as assessed by tricuspid annular plane systolic excursion (TAPSE) (normal >1.5 cm). Atria * The left atrial size is normal. * Right atrial size is normal. * There is no evidence of atrial septal defect, but resolution does not allow assessment for a patent foramen ovale. Mitral Valve * The mitral valve is normal. * There is no mitral valve stenosis. * Significant mitral regurgitation is absent. Tricuspid Valve * The tricuspid valve is normal. * There is no tricuspid stenosis. * Significant tricuspid regurgitation is absent. Aortic Valve * The aortic valve is trileaflet. * Aortic stenosis is absent. * There is no significant aortic regurgitation. Pulmonic Valve * The pulmonary valve is inadequately visualized, but the Doppler data is adequate for interpretation. * Pulmonic stenosis is absent. * Mild pulmonic valvular regurgitation. Great Vessels * The aortic root and proximal ascending aorta are normal sized. Pericardium/Pleural * There is no pericardial effusion. Great Vessels * Normal inferior vena cava diameter and respiratory variation suggests normal central venous pressure. Left Ventricular Diastolic Function * The LV diastolic function is normal. MMode 2D Measurements and Calculations IVSd 1.3 cm IVSs 1.5 cm LVIDd 4.5 cm LVIDs 3.2 cm LVPWd 1.2 cm LVPWs 1.5 cm IVS/LVPW 1.1 FS 28.5 % EDV(Teich) 92.2 ml ESV(Teich) 41.4 ml EF(Teich) 55.1 % EDV(cubed) 90.8 ml ESV(cubed) 33.2 ml EF(cubed) 63.4 % % IVS thick 10.8 % % LVPW thick 21.8 % LV mass(C)d 214.8 grams LV mass(C)dI 95.1 grams/m\S\2 LV mass(C)s 167.7 grams LV mass(C)sI 74.2 grams/m\S\2 SV(Teich) 50.8 ml SI(Teich) 22.5 ml/m\S\2 SV(cubed) 57.6 ml SI(cubed) 25.5 ml/m\S\2 Ao root diam 3.2 cm Ao root area 7.9 cm\S\2 ACS 2.6 cm LA dimension 3.3 cm LA/Ao 1.0 LVAd ap4 31.2 cm\S\2 LVLd ap4 8.9 cm EDV(MOD-sp4) 92.9 ml EDV(sp4-el) 93.1 ml LVAs ap4 18.1 cm\S\2 LVLs ap4 7.2 cm ESV(MOD-sp4) 40.5 ml ESV(sp4-el) 38.9 ml EF(MOD-sp4) 56.4 % EF(sp4-el) 58.2 % LVAd ap2 34.1 cm\S\2 LVLd ap2 9.2 cm EDV(MOD-sp2) 115.5 ml EDV(sp2-el) 107.0 ml LVAs ap2 18.5 cm\S\2 LVLs ap2 7.8 cm ESV(MOD-sp2) 41.3 ml ESV(sp2-el) 37.1 ml EF(MOD-sp2) 64.3 % EF(sp2-el) 65.3 % LVLd %diff 3.8 % EDV(MOD-bp) 100.8 ml LVLs %diff 8.1 % ESV(MOD-bp) 42.3 ml EF(MOD-bp) 58.0 % SV(MOD-sp4) 52.4 ml SI(MOD-sp4) 23.2 ml/m\S\2 SV(MOD-sp2) 74.2 ml SI(MOD-sp2) 32.9 ml/m\S\2 SV(MOD-bp) 58.5 ml SI(MOD-bp) 25.9 ml/m\S\2 SV(sp4-el) 54.1 ml SI(sp4-el) 24.0 ml/m\S\2 SV(sp2-el) 69.9 ml SI(sp2-el) 30.9 ml/m\S\2 Doppler Measurements and Calculations MV E max elissa 70.2 cm/sec MV A max elissa 50.6 cm/sec MV E/A 1.4 MV dec time 0.17 sec Ao V2 max 118.3 cm/sec Ao max PG 5.6 mmHg Ao max PG (full) 1.6 mmHg LV V1 max PG 4.0 mmHg LV V1 max 100.4 cm/sec PA V2 max 102.9 cm/sec PA max PG 4.2 mmHg TR max elissa 175.9 cm/sec
--- NOTE | 2017-12-31 19:58 | Progress Note ---
Internal Med Progress Note Date of Service: December 31, 2017. Provider Documentation: SUBJECTIVE: Patient awake and alert. Patient was seen this AM with general resolution of the right chin recurrent abscess. General surgery able to get more fluid out. Patient also had normal echocardiogram today. Denies chest pain or shortness of breath. Denies symptoms with ambulation. Heart rate is less tachycardic today with ambulation OBJECTIVE: Exam: General- no distress Eyes- EOMI Face - dressing beneath the chin from incision and drainage Neck-no JVD Lungs- CTABL, no wheezing Heart- regular rate Abdomen- soft, nontender, + bowel sounds Extremities- no edema Neuro- awake and alert ASSESSMENT & PLAN: Severe sepsis -SIRS plus ARF secondary to right submental abscess (non-odontogenic infection) failed outpatient treatment -was empirically been on IV Cefepime, oral Doxycycline, IV insulin, IVF -blood cultures no growth to date, abscess culture as staph -de-escalate antibiotics on 12/30/17: will continue oral doxycycline and stop IV cefepime and start oral clindamycin -abscess culture further speciated as pansensitive staph on 12/30/17 and only oral clindamycin continued -12/30/17 the right submental abscess which was previously drained in the ED on admission appears to be collecting bodily fluids again as the skin is more fluctuant, consult general surgery to assist with Incision and drainage -general resolution of the right chin recurrent abscess in AM of 12/31/17. General surgery able to get more fluid out with Incision and drainage diabetic ketoacidosis precipitated by sepsis, steroid Rx -patient was on outpatient steroid course, New diagnosis of diabetes. was initially with metabolic encephalopathy as he was in diabetic ketoacidosis -Inpatient Pharmacy glycemic control consult: switched from IV insulin drip to subcutaneous insulin between 12/29/17 and 12/30/17, continue subcutaneous insulin -Diabetic educations of DM -outpatient endocrine follow up Hypokalemia -hypokalemia was somewhat expected while on insulin drip and patient needed potassium supplementation -while on subcutaneous insulin, patient again with hypokalemia. serum potassium on 12/31/17 was 2.8. Patient received IV and oral potassium. Urine studies are being done to assess if patient is losing potassium in the urine or not. he denies diarrhea Tachycardia with ambulation -Despite the improvements of the white blood cell counts and patient afebrile and resolution of DKA, patient has had tachycardia with ambulation -echocardiogram * -- Conclusions -- * Study was technically adequate. * Sinus rhythm with range of 80-85 bpm was noted during the echocardiogram. * There is normal left ventricular wall thickness. * The left ventricular wall motion is normal. * The LV Ejection Fraction = 55-60%. * The LV diastolic function is normal. * There is no significant valvular heart disease. -heart rate is generally improved today Tobacco use -Nicotine patch. Mood/ anxiety disorder, stable as per patient -bupropion DVT prophylaxis, lovenox FULL CODE. Disposition: remains in hospital after incision and drainage of the recurrent right submental abscess, 24 hour urine potassium study being conducted, reassess serum potassium tomorrow AM Vital Signs: Date Time Temp Pulse Resp B/P (MAP) Pulse Ox O2 Delivery O2 Flow Rate FiO2 12/31/17 19:21 36.7 87 16 103/66 (78) 98 Room Air 12/31/17 16:17 36.7 80 18 118/76 (90) 99 Room Air 12/31/17 16:00 99 Room Air 12/31/17 12:01 97 Room Air 12/31/17 12:00 36.6 88 18 114/72 (86) 97 Room Air 12/31/17 08:00 97 Room Air 12/31/17 07:05 36.5 65 17 107/69 (82) 97 Room Air 12/31/17 04:35 36.4 75 18 113/68 (83) 97 Room Air 12/31/17 04:00 Room Air 12/31/17 01:04 36.6 89 17 115/70 (85) 98 Room Air 12/31/17 00:00 Room Air 12/30/17 20:00 Room Air Lab Results: Results Past 24 Hours Test 12/30/17 20:28 12/31/17 00:02 12/31/17 03:56 12/31/17 05:38 Range/Units Bedside Glucose 146 238 96 70-99 mg/dl White Blood Count 4.56 4.8-10.8 K/uL Red Blood Count 4.38 4.7-6.1 M/uL Hemoglobin 13.0 14.0-18.0 g/dL Hematocrit 37.5 42-52 % Mean Corpuscular Volume 85.6 80-100 fL Mean Corpuscular Hemoglobin 29.7 25-34 pg Mean Corpuscular Hemoglobin Concent 34.7 32-36 g/dl Platelet Count 172 130-400 K/uL Mean Platelet Volume 9.7 7.4-10.4 fL Neutrophils (%) (Auto) 43.8 % Lymphocytes (%) (Auto) 37.7 % Monocytes (%) (Auto) 13.2 % Eosinophils (%) (Auto) 4.4 % Basophils (%) (Auto) 0.7 % Neutrophils # (Auto) 2.00 1.4-6.5 K/uL Lymphocytes # (Auto) 1.72 1.2-3.4 K/uL Monocytes # (Auto) 0.60 0.11-0.59 K/uL Eosinophils # (Auto) 0.20 0-0.5 K/uL Basophils # (Auto) 0.03 0-0.2 K/uL RDW Standard Deviation 41.0 36.4-46.3 fL RDW Coefficient of Variation 13.1 11.5-14.5 % Immature Granulocyte % (Auto) 0.2 % Immature Granulocyte # (Auto) 0.01 0.00-0.02 K/uL Sodium Level 142 136-145 mmol/L Potassium Level 2.8 3.5-5.1 mmol/L Chloride Level 103 98-107 mmol/L Carbon Dioxide Level 30 21-32 mmol/L Anion Gap 9.0 3-11 mmol/L Blood Urea Nitrogen 5 7-18 mg/dl Creatinine 0.37 0.60-1.40 mg/dl Est Creatinine Clear Calc Drug Dose 367.9 ml/min Estimated GFR () > 150.0 Estimated GFR (Non- > 150.0 BUN/Creatinine Ratio 13.7 10-20 Random Glucose 80 70-99 mg/dl Calcium Level 9.0 8.5-10.1 mg/dl Magnesium Level 2.1 1.8-2.4 mg/dl Total Bilirubin 0.4 0.2-1 mg/dl Aspartate Amino Transf (AST/SGOT) 12 15-37 U/L Alanine Aminotransferase (ALT/SGPT) 14 12-78 U/L Alkaline Phosphatase 61 45-117 U/L Total Protein 6.1 6.4-8.2 gm/dl Albumin 2.9 3.4-5.0 gm/dl Globulin 3.2 2.5-4.0 gm/dl Albumin/Globulin Ratio 0.9 0.9-2 Test 12/31/17 07:29 12/31/17 10:00 12/31/17 10:25 12/31/17 12:10 Range/Units Bedside Glucose 106 162 70-99 mg/dl Urine Random Creatinine 180.0 mg/dl Urine Random Potassium 10.9 mEq/L Test 12/31/17 16:02 12/31/17 16:27 12/31/17 17:47 12/31/17 19:27 Range/Units Bedside Glucose 144 148 187 70-99 mg/dl Potassium Level 3.7 3.5-5.1 mmol/L
[2018-01-01] VITALS (8 sets, daily range): BP systolic 97–109; BP diastolic 63–68; PULSE 78–92; TEMP 36.3–37; O2SAT 96–98
[2018-01-01] MEDS: CLINDAMYCIN HCL 150 MG CAP PO SCH ×3 (03:16→14:34)
[2018-01-01] MEDS: BuPROPion XL 150 MG TABCR PO SCH (07:41)
[2018-01-01] MEDS: INSULIN GLARGINE SOLOSTAR 100 UNITS/ML 3 ML PEN SC SCH (07:47)
[2018-01-01] MEDS: INSULIN ASPART 100 UNITS/ML 3 ML PEN SC SCH ×3 (07:47→16:59)
[2018-01-01] MEDS: ENOXAPARIN 40 MG/0.4 ML SYR SQ SCH (07:51)
[2018-01-01] MEDS: NICOTINE 14 MG/24 HR TDSY TD SCH (08:11)
[2018-01-01 08:24] LABS: ALKALINE PHOSPHATASE 57 U/L (45-117); ALT/SGPT 16 U/L (12-78); AST/SGOT 13 U/L (15-37); BLOOD UREA NITROGEN 3 mg/dl (7-18); CALCIUM 8.7 mg/dl (8.5-10.1); CARBON DIOXIDE 33 mmol/L (21-32); CREATININE 0.53 mg/dl (0.60-1.40); GLUCOSE 143 mg/dl (70-99); POTASSIUM 3.4 mmol/L (3.5-5.1); SODIUM 142 mmol/L (136-145)
--- NOTE | 2018-01-01 09:09 | Surgery Progress Note ---
Surgery Progress Note Date of Service January 01, 2018. Subjective Post OP Day: 1 + feeling well, No complaints Objective Vital Signs: Date Time Temp Pulse Resp B/P (MAP) Pulse Ox O2 Delivery O2 Flow Rate FiO2 01/01/18 08:00 Room Air 01/01/18 07:04 36.3 78 16 109/68 (82) 97 01/01/18 04:00 Room Air 01/01/18 03:34 36.3 82 16 97/63 (74) 98 Room Air 01/01/18 00:27 36.8 87 18 106/64 (78) 96 Room Air 01/01/18 00:00 Room Air 12/31/17 20:00 Room Air 12/31/17 19:21 36.7 87 16 103/66 (78) 98 Room Air 12/31/17 16:17 36.7 80 18 118/76 (90) 99 Room Air 12/31/17 16:00 99 Room Air 12/31/17 12:01 97 Room Air 12/31/17 12:00 36.6 88 18 114/72 (86) 97 Room Air Head: normocephalic, atraumatic Neck: supple, + pertinent finding (small 1.5cm open wound healing well right neck) Respiratory/Chest: lungs clear Cardiovascular: regular rate, rhythm Abdomen: normal bowel sounds, non tender, non distended, soft Extremities: non-tender, no pedal edema Laboratory Results: Results Past 24 Hours Test 12/31/17 10:00 12/31/17 10:25 12/31/17 12:10 12/31/17 16:02 Range/Units Urine Random Creatinine 180.0 mg/dl Urine Random Potassium 10.9 mEq/L Bedside Glucose 162 144 70-99 mg/dl Test 12/31/17 16:27 12/31/17 17:47 12/31/17 19:27 12/31/17 20:38 Range/Units Bedside Glucose 148 187 141 70-99 mg/dl Potassium Level 3.7 3.5-5.1 mmol/L Test 01/01/18 00:14 01/01/18 03:30 01/01/18 07:04 01/01/18 07:41 Range/Units Bedside Glucose 105 77 153 70-99 mg/dl Sodium Level 142 136-145 mmol/L Potassium Level 3.4 3.5-5.1 mmol/L Chloride Level 102 98-107 mmol/L Carbon Dioxide Level 33 21-32 mmol/L Anion Gap 7.0 3-11 mmol/L Blood Urea Nitrogen 3 7-18 mg/dl Creatinine 0.53 0.60-1.40 mg/dl Est Creatinine Clear Calc Drug Dose 256.9 ml/min Estimated GFR () > 150.0 Estimated GFR (Non- 148.1 BUN/Creatinine Ratio 6.4 10-20 Random Glucose 143 70-99 mg/dl Calcium Level 8.7 8.5-10.1 mg/dl Total Bilirubin 0.3 0.2-1 mg/dl Aspartate Amino Transf (AST/SGOT) 13 15-37 U/L Alanine Aminotransferase (ALT/SGPT) 16 12-78 U/L Alkaline Phosphatase 57 45-117 U/L Total Protein 6.0 6.4-8.2 gm/dl Albumin 3.0 3.4-5.0 gm/dl Globulin 3.0 2.5-4.0 gm/dl Albumin/Globulin Ratio 1.0 0.9-2 Assessment & Plan submental right sided abscess -wound looks good -daily dry dressing aftrer shower -will close in a week or so -will sign off
[2018-01-01] MEDS ORDERED: POTASSIUM CHLORIDE 20 MEQ TABCR PO STA (09:26)
--- NOTE | 2018-01-01 09:54 | Pharmacy Progress Note ---
Pharmacy Glycemic Short Note 2 Date of Service January 01, 2018. Outpatient Anti-diabetic Regimen: * n/a * A1c = 14.1% (12/27/17) Test 12/31/17 12:10 12/31/17 16:02 12/31/17 16:27 12/31/17 19:27 Bedside Glucose 162 mg/dl (70-99) 144 mg/dl (70-99) 148 mg/dl (70-99) 187 mg/dl (70-99) Test 12/31/17 20:38 01/01/18 00:14 01/01/18 03:30 01/01/18 07:04 Bedside Glucose 141 mg/dl (70-99) 105 mg/dl (70-99) 77 mg/dl (70-99) Random Glucose 143 mg/dl (70-99) Test 01/01/18 07:41 Bedside Glucose 153 mg/dl (70-99) ASSESSMENT: 01/01/18 * No changes to causes of insulin resistance * Patient received 102 units of insulin yesterday. Total basal = 70 units * Fasting BSG WNL but did have a check of 77 overnight - will adjust scale so he only receives 35 units tonight if BSG above goal range since he already received 40 units this AM * Postprandial BSGs in range - no change to CF/CR 12/31/17 * Patient received 143 units of insulin yesterday * No changes to causes of insulin resistance * 100 units of basal given yesterday to make up for reduced basal on 12/29 * Fasting BSG acceptable but continuing w/ 80-100 units of basal/day will most likely be too much * Estimating total basal ~70 units * Will continue current CF/CR for now 12/30/17: * Patient's BSGs became appropriate for discontinuation of IV insulin infusion late last night. * Insulin infusion was stopped. BSG elevated so far today. * It's looking like patient's basal needs may be ~80 units/day? Slightly larger dose given this morning to make up for basal deficit from yesterday. * Novolog parameters tightened this afternoon to provide additional correction/ prandial coverage. 12/29/17 * Patient was given Lantus 40 units x1 dose this morning, and insulin infusion remains at ~3.6 units/hr. * Patient's insulin needs have been greater than anticipated, based on weight. * Will continue to add Lantus until basal needs are more clear and drip is able to be weaned off. 12/28/17 * Mr Kamara is a 22yo previously undiagnosed diabetic, admitted with sepsis and found to be in DKA. * admission labs: BHBA 91.9, urine ketones 4+, BSG > 500, anion gap 22, CO2 10 , pH 7.2 * Patient was prescribed prednisone as an outpt recently, which likely contributed to DKA. * Patient's potassium level was 3.0 this morning, so insulin gtt was placed on hold for several hours until K+ replaced. Lantus dose was given in the mean time. * Repeat labs confirmed that DKA has not yet resolved and that K+ acceptable to resume IV insulin infusion. PLAN FOR INPATIENT GLYCEMIC CONTROL: * Basal insulin: adjust scale to provide ~70 units of basal for today * Lantus 30 units BID for BSG 140 or less * Lantus 35 units BID for BSG above 140 * Bolus insulin - no change * NovoLog per scale ACHS or Q6hrs while NPO * Goal Range: Low 110 mg/dL - High 140 mg/dL * Correction Factor: 15 mg/dL/unit * Nutritional / Prandial insulin per carb ratio of 1 unit per 6 grams CHO consumed DISCHARGE PLANNING: * Patient's current A1c 14.1%. Patient will need to be discharged on an insulin regimen. * Based on current information, a reasonable starting regimen for discharge might be: * Lantus 35 units SQ BID -- consider adding a hold or half-dose parameter for "low" BSG * Novolog 8-10 units SQ with each meal * Patient will need to monitor BSGs frequently and f/u with PCP/endocrinology [facility] after discharge until appropriate outpt regimen is determined. * Insulin needs may decrease as insulin resistance lessens. * Goal would be to get patient on once-daily Lantus (or Toujeo) and start counting/covering carbs with Novolog (rather than using set doses). * CDE consulted and working with patient. * Please note that the plan above was derived based on current level of insulin resistance and hospital stress. These recommendations are appropriate for inpatient admission only. Plan of care upon discharge will need to be reassessed to avoid potential outpatient hypo/hyperglycemia. Thank you.
[2018-01-01] MEDS ORDERED: MCRK20 OR (18:14)
--- NOTE | 2018-01-01 18:27 | Progress Note ---
Internal Med Progress Note Date of Service: January 01, 2018. Provider Documentation: SUBJECTIVE: Patient was re-seen by general surgery for the abscess. Now with regular gauze dressing. Patient denies pain. Denies palpitations. Reports he understands discharge instructions OBJECTIVE: Exam: General- no distress Eyes- EOMI Face - gauze dressing beneath the chin from incision and drainage Neck-no JVD Lungs- CTABL, no wheezing Heart- regular rate Abdomen- soft, nontender, + bowel sounds Extremities- no edema Neuro- awake and alert ASSESSMENT & PLAN: Hospital Course and Discharge Plans Patient with altered mental status secondary to sepsis and diabetic ketoacidosis and found to have hypokalemia Severe sepsis -SIRS plus ARF secondary to right submental abscess (non-odontogenic infection) failed outpatient treatment -was empirically been on IV Cefepime, oral Doxycycline, IV insulin, IVF -blood cultures no growth to date, abscess culture as staph -de-escalate antibiotics on 12/30/17: will continue oral doxycycline and stop IV cefepime and start oral clindamycin -abscess culture further speciated as pansensitive staph on 12/30/17 and only oral clindamycin continued -12/30/17 the right submental abscess which was previously drained in the ED on admission appears to be collecting bodily fluids again as the skin is more fluctuant, consult general surgery to assist with Incision and drainage -general resolution of the right chin recurrent abscess in AM of 12/31/17. General surgery able to get more fluid out with Incision and drainage -Patient re-assessed by general surgery on 01/01/18 diabetic ketoacidosis precipitated by sepsis, steroid Rx -patient was on outpatient steroid course, New diagnosis of diabetes. was initially with metabolic encephalopathy as he was in diabetic ketoacidosis -Inpatient Pharmacy glycemic control consult: switched from IV insulin drip to subcutaneous insulin between 12/29/17 and 12/30/17, continued subcutaneous insulin -Patient has received diabetic education and prescriptions for discharge supplies -outpatient endocrine 01/17/2018 1:00 PM Katheryn Ashby PA-C Endocrinology , [place] Hypokalemia -hypokalemia was somewhat expected while on insulin drip and patient needed potassium supplementation -while on subcutaneous insulin, patient again with hypokalemia. serum potassium on 12/31/17 was 2.8. Patient received IV and oral potassium. Serum potassium normalizing to 3.4 on 01/01/18 and given 60 meq oral potassium -Patient to be discharged with prescription fo oral potassium 20 meq daily for 5 days -denies diarrhea -Patient completed 24 hour urine potassium study on between 12/31/17 and 01/01/18 with results pending and should follow up with primary care doctor for Diabetes and reveal of these labs 01/04/2018 1:00 PM Norris Cole MD [facility] Tachycardia with ambulation -Despite the improvements of the white blood cell counts and patient afebrile and resolution of DKA, patient has had tachycardia with ambulation -echocardiogram * -- Conclusions -- * Study was technically adequate. * Sinus rhythm with range of 80-85 bpm was noted during the echocardiogram. * There is normal left ventricular wall thickness. * The left ventricular wall motion is normal. * The LV Ejection Fraction = 55-60%. * The LV diastolic function is normal. * There is no significant valvular heart disease. -heart rate is generally improved today Tobacco use -Nicotine patch. Mood/ anxiety disorder, stable as per patient -continue bupropion Discharge Instructions 01/04/2018 1:00 PM Norris Cole MD [facility] (Patient completed 24 hour urine potassium study on between 12/31/17 and 01/01/18 with results pending and should follow up with primary care doctor for Diabetes and reveal of these labs ) 01/17/2018 1:00 PM Katheryn Ashby PA-C Endocrinology, [place] Vital Signs: Date Time Temp Pulse Resp B/P (MAP) Pulse Ox O2 Delivery O2 Flow Rate FiO2 01/01/18 16:01 97 Room Air 01/01/18 15:01 37.0 86 18 99/66 (77) 98 Room Air 01/01/18 12:01 96 Room Air 01/01/18 11:18 36.7 92 18 98/67 (77) 96 01/01/18 08:00 Room Air 01/01/18 07:04 36.3 78 16 109/68 (82) 97 01/01/18 04:00 Room Air 01/01/18 03:34 36.3 82 16 97/63 (74) 98 Room Air 01/01/18 00:27 36.8 87 18 106/64 (78) 96 Room Air 01/01/18 00:00 Room Air 12/31/17 20:00 Room Air 12/31/17 19:21 36.7 87 16 103/66 (78) 98 Room Air Lab Results: Results Past 24 Hours Test 12/31/17 19:27 12/31/17 20:38 01/01/18 00:14 01/01/18 03:30 Range/Units Bedside Glucose 187 141 105 77 70-99 mg/dl Test 01/01/18 07:04 01/01/18 07:41 01/01/18 11:45 01/01/18 15:41 Range/Units Sodium Level 142 136-145 mmol/L Potassium Level 3.4 3.5-5.1 mmol/L Chloride Level 102 98-107 mmol/L Carbon Dioxide Level 33 21-32 mmol/L Anion Gap 7.0 3-11 mmol/L Blood Urea Nitrogen 3 7-18 mg/dl Creatinine 0.53 0.60-1.40 mg/dl Est Creatinine Clear Calc Drug Dose 256.9 ml/min Estimated GFR () > 150.0 Estimated GFR (Non- 148.1 BUN/Creatinine Ratio 6.4 10-20 Random Glucose 143 70-99 mg/dl Calcium Level 8.7 8.5-10.1 mg/dl Total Bilirubin 0.3 0.2-1 mg/dl Aspartate Amino Transf (AST/SGOT) 13 15-37 U/L Alanine Aminotransferase (ALT/SGPT) 16 12-78 U/L Alkaline Phosphatase 57 45-117 U/L Total Protein 6.0 6.4-8.2 gm/dl Albumin 3.0 3.4-5.0 gm/dl Globulin 3.0 2.5-4.0 gm/dl Albumin/Globulin Ratio 1.0 0.9-2 Bedside Glucose 153 163 178 70-99 mg/dl Test 01/01/18 16:11 Range/Units Bedside Glucose 143 70-99 mg/dl
--- NOTE | 2018-01-01 18:29 | Discharge Instructions ---
Discharge Instructions Date of Service January 01, 2018. Admission Reason for Admission: Sepsis Discharge Discharge Diagnosis / Problem: sepsis, diabetic ketoacidosis, Diabetes, hypokalemia, abscess Discharge Goals Goal(s): Improve function, Improve disease control Activity Recommendations Activity Limitations: per Instructions/Follow-up section Shower/Bathe: no limitations . Instructions / Follow-Up Instructions / Follow-Up Hospital Course and Discharge Plans Patient with altered mental status secondary to sepsis and diabetic ketoacidosis and found to have hypokalemia Severe sepsis -SIRS plus ARF secondary to right submental abscess (non-odontogenic infection) failed outpatient treatment -was empirically been on IV Cefepime, oral Doxycycline, IV insulin, IVF -blood cultures no growth to date, abscess culture as staph -de-escalate antibiotics on 12/30/17: will continue oral doxycycline and stop IV cefepime and start oral clindamycin -abscess culture further speciated as pansensitive staph on 12/30/17 and only oral clindamycin continued -12/30/17 the right submental abscess which was previously drained in the ED on admission appears to be collecting bodily fluids again as the skin is more fluctuant, consult general surgery to assist with Incision and drainage -general resolution of the right chin recurrent abscess in AM of 12/31/17. General surgery able to get more fluid out with Incision and drainage -Patient re-assessed by general surgery on 01/01/18 diabetic ketoacidosis precipitated by sepsis, steroid Rx -patient was on outpatient steroid course, New diagnosis of diabetes. was initially with metabolic encephalopathy as he was in diabetic ketoacidosis -Inpatient Pharmacy glycemic control consult: switched from IV insulin drip to subcutaneous insulin between 12/29/17 and 12/30/17, continued subcutaneous insulin -Patient has received diabetic education and prescriptions for discharge supplies -outpatient endocrine 01/17/2018 1:00 PM Katheryn Ashby PA-C Endocrinology , [place] Hypokalemia -hypokalemia was somewhat expected while on insulin drip and patient needed potassium supplementation -while on subcutaneous insulin, patient again with hypokalemia. serum potassium on 12/31/17 was 2.8. Patient received IV and oral potassium. Serum potassium normalizing to 3.4 on 01/01/18 and given 60 meq oral potassium -Patient to be discharged with prescription fo oral potassium 20 meq daily for 5 days -denies diarrhea -Patient completed 24 hour urine potassium study on between 12/31/17 and 01/01/18 with results pending and should follow up with primary care doctor for Diabetes and reveal of these labs 01/04/2018 1:00 PM Norris Cole MD [facility] Tachycardia with ambulation -Despite the improvements of the white blood cell counts and patient afebrile and resolution of DKA, patient has had tachycardia with ambulation -echocardiogram -- Conclusions -- Study was technically adequate. Sinus rhythm with range of 80-85 bpm was noted during the echocardiogram. There is normal left ventricular wall thickness. The left ventricular wall motion is normal. The LV Ejection Fraction = 55-60%. The LV diastolic function is normal. There is no significant valvular heart disease. -heart rate is generally improved today Tobacco use -Nicotine patch. Mood/ anxiety disorder, stable as per patient -continue bupropion Discharge Instructions 01/04/2018 1:00 PM Norris Cole MD [facility] (Patient completed 24 hour urine potassium study on between 12/31/17 and 01/01/18 with results pending and should follow up with primary care doctor for Diabetes and reveal of these labs ) 01/17/2018 1:00 PM Katheryn Ashby PA-C Endocrinology, [facility] Diet Patient's current hospital diet: Diabetes Type 1 Diet Discharge Diet Recommended Diet: Diabetes Type 1 Diet Pending Studies Studies pending at discharge: yes List of pending studies: 24 hour urine study results Laboratory Results Hemoglobin A1c Test 12/27/17 23:02 Range/Units Estimated Average Glucose 358 mg/dl Hemoglobin A1c 14.1 H 4.5-5.6 % Medical Emergencies . Who to Call and When: Medical Emergencies: If at any time you feel your situation is an emergency, please call 911 immediately. . Non-Emergent Contact Non-Emergency issues call your: Primary Care Provider, Specialist ( poultry process worker) Call Non-Emergent contact if: you have any medication questions . . "Provider Documentation" section prepared by Michelet Kearns. .
[2018-01-01] MEDS ORDERED: CLC150 PO (18:34)
--- NOTE | 2018-01-01 18:44 | Discharge Summary ---
Discharge Summary Date of Service January 01, 2018. Discharge Summary Admission Date: December 28, 2017 at 00:04 Discharge Date: January 01, 2018 Discharge Disposition: Home Principal Diagnosis: sepsis, diabetic ketoacidosis, Diabetes, hypokalemia, right submental abscess ( non-odontogenic infection) Medication Reconciliation New Medications: Glucose Blood (Onetouch Verio Test Strip) 1 Funmilayo Funmilayo 1 UNITS EXT Q4H for 30 Days, #180 UNIT Insulin Pen Needle (Bd Pen Needle/Naila/Ultra) 1 Mis Mis BOX, #2 Lancets ([employer] Software[employer] Delica Lancets) 1 Mis Mis BOX, #3 Potassium Chloride (Klor-Con M20) 20 Meq Tabcr 1 TAB OR DAILY for 5 Days, #5 TAB Clindamycin HCl (Clindamycin HCl) 150 Mg Cap 300 MG PO Q6H for 5 Days, #40 CAP Insulin Aspart (Novolog Flexpen) 100 Units/Ml Inj 8 UNITS SC DIRECTED for 30 Days, #30 PEN 8 units of Novolog with each meal (breakfast, lunch, dinner) Insulin Glargine (Lantus Solostar) 100 Unit/Ml Inj 30 UNITS SC BID for 30 Days, #30 PEN Take Lantus 30 units BID for BSG 140 or less in the Morning and Night Take Lantus 35 units BID for BSG above 140 in the Morning and Night Nicotine (Nicoderm Cq 14MG Patch) 14 Mg/24 Hr Dis 1 PATCH TD QAM for 30 Days, #30 PATCH Continued Medications: Bupropion (Wellbutrin) Unknown Strength Tab 1 TAB PO DAILY, TAB Discontinued Medications: Doxycycline Hyclate (Doxycycline Hyclate) 100 Mg Tab 100 MG PO BID for 10 Days, #20 TAB PRESCRIBED 12/23/2017, TAKE DIRECTED UNTIL GONE Prednisone (Prednisone) 20 Mg Tab 40 MG PO DAILY for 5 Days, #10 TAB PRESCRIBED 12/23/2017, TAKE DIRECTED UNTIL GONE Admission Information HPI (per Admitting provider): CHIEF COMPLAINT: Shortness of breath, dizziness. HISTORY OF PRESENT ILLNESS: History is obtained from the patient, mother, and records. Medical history is significant for mood, anxiety disorder, ongoing tobacco abuse. A few weeks ago, the patient noted swelling on the right chin, possibly from an ingrown hair. No toothache. A few days ago, the patient was seen at an urgent care center for possible infection. Given doxycycline and prednisone. Swelling unimproved. Patient noted to be dizzy, slightly confused by mother, shortness of breath, peeing a lot, poor appetite, some nausea, no abdominal pain, no vomiting. Patient was brought to the Emergency Room. Right chin abscess drain at the ER. IV insulin, IVF given for DKA. MEDICAL HISTORY: As above. No abdominal pain. SURGERIES: None. HOME MEDICATIONS: Include Wellbutrin, doxycycline, prednisone. ALLERGIES: NKA FAMILY HISTORY: There is a family history of diabetes. PERSONAL AND SOCIAL HISTORY: Half pack a day. No chronic intake of alcoholic beverages. Currently not working. Lives with mother. REVIEW OF SYSTEMS: As per HPI, all 10 systems reviewed. All other ROS negative. Physical Exam (per Admitting): PHYSICAL EXAMINATION: VITAL SIGNS: Blood pressure was noted to be 130/78, pulse rate 110, RR 18, temperature 36.3, sats 99 on room air. GENERAL: Anxious, in no respiratory distress. SKIN: Normal color, warm. HEENT: [place] palpebral conjunctivae. No ptosis. Dry mucosa. No trismus. Dressing on right submental area. CHEST: Clear to auscultation. HEART: Tachycardic. No murmur. ABDOMEN: Soft, nontender. EXTREMITIES: No edema, no tenderness. No gross deformity. NEUROLOGIC: Coherent. No gross focality. Hospital Course Hospital Course and Discharge Plans Patient with altered mental status secondary to sepsis and diabetic ketoacidosis and found to have hypokalemia Severe sepsis -SIRS plus ARF secondary to right submental abscess (non-odontogenic infection) failed outpatient treatment -was empirically been on IV Cefepime, oral Doxycycline, IV insulin, IVF -blood cultures no growth to date, abscess culture as staph -de-escalate antibiotics on 12/30/17: will continue oral doxycycline and stop IV cefepime and start oral clindamycin -abscess culture further speciated as pansensitive staph on 12/30/17 and only oral clindamycin continued -12/30/17 the right submental abscess which was previously drained in the ED on admission appears to be collecting bodily fluids again as the skin is more fluctuant, consult general surgery to assist with Incision and drainage -general resolution of the right chin recurrent abscess in AM of 12/31/17. General surgery able to get more fluid out with Incision and drainage -Patient re-assessed by general surgery on 01/01/18 diabetic ketoacidosis precipitated by sepsis, steroid Rx -patient was on outpatient steroid course, New diagnosis of diabetes. was initially with metabolic encephalopathy as he was in diabetic ketoacidosis -Inpatient Pharmacy glycemic control consult: switched from IV insulin drip to subcutaneous insulin between 12/29/17 and 12/30/17, continued subcutaneous insulin -Patient has received diabetic education and prescriptions for discharge supplies -outpatient endocrine 01/17/2018 1:00 PM Katheryn Ashby PA-C Endocrinology [place] Hypokalemia -hypokalemia was somewhat expected while on insulin drip and patient needed potassium supplementation -while on subcutaneous insulin, patient again with hypokalemia. serum potassium on 12/31/17 was 2.8. Patient received IV and oral potassium. Serum potassium normalizing to 3.4 on 01/01/18 and given 60 meq oral potassium -Patient to be discharged with prescription fo oral potassium 20 meq daily for 5 days -denies diarrhea -Patient completed 24 hour urine potassium study on between 12/31/17 and 01/01/18 with results pending and should follow up with primary care doctor for Diabetes and reveal of these labs 01/04/2018 1:00 PM Norris Cole MD [facility] Tachycardia with ambulation -Despite the improvements of the white blood cell counts and patient afebrile and resolution of DKA, patient has had tachycardia with ambulation -echocardiogram * -- Conclusions -- * Study was technically adequate. * Sinus rhythm with range of 80-85 bpm was noted during the echocardiogram. * There is normal left ventricular wall thickness. * The left ventricular wall motion is normal. * The LV Ejection Fraction = 55-60%. * The LV diastolic function is normal. * There is no significant valvular heart disease. -heart rate is generally improved today Tobacco use -Nicotine patch. Mood/ anxiety disorder, stable as per patient -continue bupropion Discharge Instructions 01/04/2018 1:[address] MD [facility] (Patient completed 24 hour urine potassium study on between 12/31/17 and 01/01/18 with results pending and should follow up with primary care doctor for Diabetes and reveal of these labs ) 01/17/2018 1:00 PM Katheryn Ashby PA-C End[facility] Total time spent on discharge = 40 minutes This includes examination of the patient, discharge planning, medication reconciliation, and communication with other providers. Discharge Instructions see above
[2018-01-01] MEDS ORDERED: NVLGIPEN SC (19:34)
[2018-01-01] MEDS ORDERED: INSDGIPEN SC (19:34)
== END 2018-01-01 19:45 | disposition home or self-care (01) | DRG 853 ==
LOC: C.EDB 20:27 → C.MED 12-28 00:04 → ENRESERV 12-28 00:12
PROVIDERS: ADMIT Internal Medicine; ATTEND Hospitalist
PROC: 0J943ZX Drainage of Right Neck Subcutaneous Tissue and Fascia, Percutaneous Approach, Diagnostic (ICD-10-PCS; 2017-12-27)
PROC: 0J940ZZ Drainage of Right Neck Subcutaneous Tissue and Fascia, Open Approach (ICD-10-PCS; principal; 2017-12-31)
DX: A41.2 Sepsis due to unspecified staphylococcus (principal); L02.11 Cutaneous abscess of neck; R65.20 Severe sepsis without septic shock; E13.10 Other specified diabetes mellitus with ketoacidosis without coma; G93.41 Metabolic encephalopathy; N17.9 Acute kidney failure, unspecified; T38.0X5A Adverse effect of glucocorticoids and synthetic analogues, initial encounter; E87.6 Hypokalemia; R00.0 Tachycardia, unspecified; F39 Unspecified mood [affective] disorder; F41.9 Anxiety disorder, unspecified; F17.200 Nicotine dependence, unspecified, uncomplicated; Z51.81 Encounter for therapeutic drug level monitoring; Z79.899 Other long term (current) drug therapy; Z91.048 Other nonmedicinal substance allergy status; Z83.3 Family history of diabetes mellitus